=== PATIENT | male | born 1985 | race Caucasian/White ===

== ENCOUNTER 2020-04-30 12:08 | Outpatient (REF) | payer MEDICAID, SELFPAY ==
--- NOTE | 2020-04-30 12:14 | XR_ITS ---
EXAMINATION: XR CLAVICLE, LEFT CLINICAL INFORMATION: Left ankle fracture. COMPARISON: Left clavicle 03/12/2018. TECHNIQUE: 2 of the left clavicle. FINDINGS: Healed overriding midclavicular fracture.. No additional fractures seen. AC joint is intact. The soft tissues are normal. XR/XR clavicle LT IMPRESSION: Healed overriding mid clavicular fracture. Significant callus formation since the previous study 03/12/2018..
== END 2020-04-30 12:09 | disposition home or self-care (01) ==
LOC: HO.XRAY 12:08
PROVIDERS: Visit Provider Internal Medicine
DX: Z87.81 Personal history of (healed) traumatic fracture (principal)
CPT/HCPCS: 73000

== ENCOUNTER 2020-05-05 14:37 | Outpatient (REF) | payer MEDICAID, SELFPAY | END 2020-05-05 14:38 | disposition home or self-care (01) | LOC: HO.LAB 14:37 | PROVIDERS: PCP Internal Medicine; Visit Provider Internal Medicine | DX: Z20.828 Contact with and (suspected) exposure to other viral communicable diseases (principal) | CPT/HCPCS: C9803; U0003 ==

== ENCOUNTER 2020-05-31 14:02 | Outpatient (REF) | payer MEDICAID, SELFPAY ==
--- NOTE | 2020-05-31 14:02 | XR_ITS ---
EXAMINATION: XR CLAVICLE, LEFT CLINICAL INFORMATION: Fracture COMPARISON: Previous x-ray most recent 04/30/2020 TECHNIQUE: 2 of the left clavicle. FINDINGS: There is a healing fracture of the left mid clavicle with bony callus formation. Fracture line appears more indistinct. Alignment is unchanged. Soft tissues are unremarkable. XR/XR clavicle LT IMPRESSION: Healing left mid clavicle fracture.
== END 2020-05-31 14:03 | disposition home or self-care (01) ==
LOC: HO.HOSX 14:02
PROVIDERS: Visit Provider Physician Assistant
DX: S42.009A Fracture of unspecified part of unspecified clavicle, initial encounter for closed fracture (principal); X58.XXXA Exposure to other specified factors, initial encounter; Y93.9 Activity, unspecified; Y92.9 Unspecified place or not applicable; Y99.8 Other external cause status; F17.210 Nicotine dependence, cigarettes, uncomplicated
CPT/HCPCS: 73000; 99202

== ENCOUNTER 2020-06-21 12:10 | Outpatient (REF) | payer MEDICAID, SELFPAY ==
[2020-06-21 14:40] LABS: Alanine Aminotransferase 12 U/L (0-40); Albumin Level 4.5 g/dL (3.5-5.0); Alkaline Phosphatase 45 U/L (39-117); Aspartate Amino Transferase 18 U/L (5-37); Bilirubin Direct 0.2 mg/dL (0.0-0.5); Bilirubin Total 0.5 mg/dL (0.0-1.0); Total Protein 7.3 g/dL (6.5-8.0)
[2020-08-25 11:56] LABS: HCV Log PCR <1.18 NOT DETECTED; HepC Viral Load <15 NOT DETECTED
== END 2020-06-21 12:11 | disposition home or self-care (01) ==
LOC: HO.10HDL 12:10
PROVIDERS: Visit Provider Internal Medicine
DX: B18.2 Chronic viral hepatitis C (principal)
CPT/HCPCS: 36415; 80076; 87522

== ENCOUNTER 2021-05-02 20:51 | Emergency (ER) | payer MEDICAID, SELFPAY ==
[2021-05-02 20:58] VITALS: BP 124/71; PULSE 68; RESP 96; TEMP 36.6; BMI 27.3
== END 2021-05-02 23:04 | disposition left against medical advice (07) ==
PROVIDERS: Emergency Provider Emergency Medicine; PCP Internal Medicine
DX: R20.0 Anesthesia of skin (principal)
CPT/HCPCS: 99281; 99282

== ENCOUNTER 2021-07-18 12:34 | Outpatient (REF) | payer MEDICAID, SELFPAY ==
[2021-07-18 13:10] LABS: MANUAL DIFF FLAG NO
[2021-07-18 13:14] LABS: Basophils Percent Auto 0.3 % (0-2); Eosinophils Absolute Auto 0.2 X10*3/uL (0.0-0.4); Eosinophils Percent Auto 2.7 % (0-4); Hematocrit 44.5 % (42.0-52.0); Hemoglobin 15.5 g/dl (14.0-18.0); Imm Gran Abs Auto 0.02 X10*3/uL (0.00-0.03); Imm Gran Pct Auto 0.3 % (0.0-0.4); Lymphocytes Absolute Auto 2.6 X10*3/uL (1.2-4.9); Lymphocytes Percent Auto 34.3 % (20-40); Mean Corpuscular HGB Conc 34.8 g/dl (31.0-36.0); Mean Corpuscular Hemoglobin 30.2 pg (27.0-33.0); Mean Corpuscular Volume 86.6 fL (80.0-98.0); Mean Platelet Volume 9.5 fL (9.4-12.4); Monocytes Absolute Auto 0.6 X10*3/uL (0.1-1.2); Monocytes Percent Auto 7.3 % (2-11); Neutrophils Absolute Auto 4.2 x10*3/uL (2.0-8.3); Neutrophils Percent Auto 55.1 % (45-73); Platelet Count 209 X10*3/uL (160-400); Red Blood Count 5.14 X10*6/uL (4.60-5.80); White Blood Count 7.5 X10*3/uL (4.8-10.8)
[2021-07-18 13:19] LABS: Prothrombin Time 10.9 SEC (9.9-13.0)
[2021-07-18 13:41] LABS: Alanine Aminotransferase 16 U/L (0-40); Albumin Level 4.7 g/dL (3.5-5.0); Alkaline Phosphatase 39 U/L (39-117); Aspartate Amino Transferase 19 U/L (5-37); Bilirubin Direct 0.2 mg/dL (0.0-0.5); Bilirubin Total 0.4 mg/dL (0.0-1.0); Total Protein 7.8 g/dL (6.5-8.0)
[2021-07-20 13:02] LABS: Alpha Fetoprotein 1.6 ng/mL (<6.1)
[2021-07-23 10:02] LABS: HCV Log PCR <1.18 log IU/mL; HepC Viral Load <15 IU/mL
== END 2021-07-18 12:35 | disposition home or self-care (01) ==
LOC: HO.LAB 12:34
PROVIDERS: PCP Internal Medicine; Visit Provider Internal Medicine
DX: B18.2 Chronic viral hepatitis C (principal)
CPT/HCPCS: 36415; 80076; 82105; 85025; 85610; 87522

== ENCOUNTER 2021-10-13 13:27 | Outpatient (REF) | payer MEDICAID, SELFPAY ==
[2021-10-13 13:42] LABS: MANUAL DIFF FLAG NO
[2021-10-13 14:07] LABS: Basophils Percent Auto 0.4 % (0-2); Eosinophils Absolute Auto 0.2 X10*3/uL (0.0-0.4); Eosinophils Percent Auto 2.3 % (0-4); Hematocrit 43.6 % (42.0-52.0); Hemoglobin 14.9 g/dl (14.0-18.0); Imm Gran Abs Auto 0.02 X10*3/uL (0.00-0.03); Imm Gran Pct Auto 0.3 % (0.0-0.4); Lymphocytes Absolute Auto 2.8 X10*3/uL (1.2-4.9); Mean Corpuscular HGB Conc 34.2 g/dl (31.0-36.0); Mean Corpuscular Hemoglobin 29.3 pg (27.0-33.0); Mean Corpuscular Volume 85.7 fL (80.0-98.0); Mean Platelet Volume 9.6 fL (9.4-12.4); Monocytes Absolute Auto 0.6 X10*3/uL (0.1-1.2); Monocytes Percent Auto 7.4 % (2-11); Neutrophils Percent Auto 52.6 % (45-73); Platelet Count 261 X10*3/uL (160-400); Red Blood Count 5.09 X10*6/uL (4.60-5.80); Red Cell Distribution Width 13.1 % (11.0-16.0); White Blood Count 7.5 X10*3/uL (4.8-10.8)
[2021-10-13 14:28] LABS: Alanine Aminotransferase 11 U/L (0-40); Albumin Level 4.6 g/dL (3.5-5.0); Alkaline Phosphatase 39 U/L (39-117); Anion Gap 11 (12-20); Aspartate Amino Transferase 17 U/L (5-37); Bilirubin Total 0.5 mg/dL (0.0-1.0); Blood Urea Nitrogen 9 mg/dL (9-16); Calcium 9.9 mg/dL (8.4-10.2); Carbon Dioxide 27 mmol/L (22-29); Chloride 105 mmol/L (96-108); Estimated Glomerular Filt Rate > 60; Glucose Random 91 mg/dL (60-115); Potassium 4.3 mmol/L (3.3-5.1); Sodium 139 mmol/L (135-145); Total Protein 7.7 g/dL (6.5-8.0)
[2021-10-15 16:06] LABS: HCV Log PCR <1.18 NOT DETECTED Log IU/mL (NOT DETECTED); HepC Viral Load <15 NOT DETECTED IU/mL (NOT DETECTED)
== END 2021-10-13 13:28 | disposition home or self-care (01) ==
LOC: HO.LAB 13:27
PROVIDERS: PCP Internal Medicine; Visit Provider Internal Medicine
DX: Z86.19 Personal history of other infectious and parasitic diseases (principal); Z83.3 Family history of diabetes mellitus
CPT/HCPCS: 36415; 80053; 85025; 87522

== ENCOUNTER 2022-04-19 11:38 | Outpatient (REF) | payer MEDICAID, SELFPAY ==
[2022-04-19 14:19] LABS: Appearance Urine Clear; Color Urine Yellow; Glucose Urine UA Negative (Negative); Leukocyte Esterase Urine Negative (Negative); Nitrite Urine Negative (Negative); Urine Blood Negative (Negative); Urine Ketones Negative (Negative); Urine Protein Negative (Neg-Trace)
[2022-04-19 16:43] LABS: CT PCR NOT DETECTED (Not Detect.); NG PCR NOT DETECTED (Not Detect.)
== END 2022-04-19 11:39 | disposition home or self-care (01) ==
LOC: HO.10HDL 11:38
PROVIDERS: Visit Provider Internal Medicine
DX: R30.0 Dysuria (principal)
CPT/HCPCS: 81003; 87086; 87491; 87591

== ENCOUNTER 2022-09-29 12:01 | Outpatient (REF) | payer MEDICAID, SELFPAY ==
[2022-09-29 13:13] LABS: MANUAL DIFF FLAG NO
[2022-09-29 13:21] LABS: Basophils Percent Auto 0.4 % (0-2); Eosinophils Absolute Auto 0.1 X10*3/uL (0.0-0.4); Eosinophils Percent Auto 1.9 % (0-4); Hematocrit 43.7 % (42.0-52.0); Hemoglobin 15.2 g/dl (14.0-18.0); Imm Gran Abs Auto 0.01 X10*3/uL (0.00-0.03); Imm Gran Pct Auto 0.2 % (0.0-0.4); Lymphocytes Absolute Auto 1.7 X10*3/uL (1.2-4.9); Lymphocytes Percent Auto 31.7 % (20-40); Mean Corpuscular HGB Conc 34.8 g/dl (31.0-36.0); Mean Corpuscular Hemoglobin 29.5 pg (27.0-33.0); Mean Corpuscular Volume 84.9 fL (80.0-98.0); Mean Platelet Volume 10.4 fL (9.4-12.4); Monocytes Absolute Auto 0.4 X10*3/uL (0.1-1.2); Monocytes Percent Auto 7.1 % (2-11); Neutrophils Absolute Auto 3.1 x10*3/uL (2.0-8.3); Neutrophils Percent Auto 58.7 % (45-73); Platelet Count 230 X10*3/uL (160-400); Red Blood Count 5.15 X10*6/uL (4.60-5.80); Red Cell Distribution Width 12.7 % (11.0-16.0); White Blood Count 5.2 X10*3/uL (4.8-10.8)
[2022-09-29 13:23] LABS: Appearance Urine Clear; Color Urine Yellow; Glucose Urine UA Negative (Negative); Leukocyte Esterase Urine Negative (Negative); Nitrite Urine Negative (Negative); PH 5.5 (5.0-9.0); Urine Blood Negative (Negative); Urine Ketones Negative (Negative); Urine Protein Negative (Neg-Trace)
[2022-09-29 13:34] LABS: Alanine Aminotransferase 9 U/L (0-40); Albumin Level 4.6 g/dL (3.5-5.0); Alkaline Phosphatase 32 U/L (39-117); Anion Gap 10 (12-20); Aspartate Amino Transferase 13 U/L (5-37); Bilirubin Total 0.9 mg/dL (0.0-1.0); Blood Urea Nitrogen 13 mg/dL (9-16); C Reactive Protein < 0.10 mg/dL (< or = 0.50); Calcium 9.3 mg/dL (8.4-10.2); Carbon Dioxide 25 mmol/L (22-29); Chloride 108 mmol/L (96-108); Estimated Glomerular Filt Rate > 60; Glucose Random 89 mg/dL (60-115); Lipase 38 U/L (8-78); Potassium 4.1 mmol/L (3.3-5.1); Sodium 139 mmol/L (135-145); Total Protein 7.1 g/dL (6.5-8.0)
== END 2022-09-29 12:02 | disposition home or self-care (01) ==
LOC: HO.10HDL 12:01
PROVIDERS: Visit Provider Internal Medicine
DX: R10.9 Unspecified abdominal pain (principal); R63.4 Abnormal weight loss; Z83.3 Family history of diabetes mellitus
CPT/HCPCS: 36415; 80053; 81003; 83690; 85025; 86140

== ENCOUNTER 2022-11-07 23:47 | Emergency (ER) | payer MEDICAID, SELFPAY ==
[2022-11-08 00:01] VITALS: BP 115/78; PULSE 67; RESP 16; TEMP 36.6; O2SAT 97; BMI 27.4
[2022-11-08 00:14] LABS: Hematocrit 41.6 % (42.0-52.0); Hemoglobin 14.9 g/dl (14.0-18.0); Mean Corpuscular HGB Conc 35.8 g/dl (31.0-36.0); Mean Corpuscular Hemoglobin 30.1 pg (27.0-33.0); Mean Platelet Volume 9.5 fL (9.4-12.4); Platelet Count 225 X10*3/uL (160-400); Red Blood Count 4.95 X10*6/uL (4.60-5.80); Red Cell Distribution Width 12.5 % (11.0-16.0); White Blood Count 7.8 X10*3/uL (4.8-10.8)
[2022-11-08 00:40] LABS: Alanine Aminotransferase 9 U/L (0-40); Albumin Level 4.5 g/dL (3.5-5.0); Alkaline Phosphatase 30 U/L (39-117); Anion Gap 12 (12-20); Aspartate Amino Transferase 13 U/L (5-37); Bilirubin Total 0.7 mg/dL (0.0-1.0); Blood Urea Nitrogen 15 mg/dL (9-16); Calcium 9.6 mg/dL (8.4-10.2); Carbon Dioxide 25 mmol/L (22-29); Chloride 108 mmol/L (96-108); Estimated Glomerular Filt Rate > 60; Glucose Random 123 mg/dL (60-115); Potassium 3.7 mmol/L (3.3-5.1); Sodium 141 mmol/L (135-145); Total Protein 6.9 g/dL (6.5-8.0)
== END 2022-11-08 00:51 | disposition left against medical advice (07) ==
PROVIDERS: Emergency Provider Emergency Medicine; PCP Internal Medicine
DX: R20.0 Anesthesia of skin (principal); Z79.899 Other long term (current) drug therapy
CPT/HCPCS: 36415; 80053; 83735; 85027; 99281; 99283

== ENCOUNTER 2022-12-21 10:05 | Outpatient (REF) | payer MEDICAID, SELFPAY ==
[2022-12-22 17:43] LABS: HCV Log PCR <1.18 NOT DETECTED Log IU/mL (NOT DETECTED); HepC Viral Load <15 NOT DETECTED IU/mL (NOT DETECTED)
[2022-12-25 13:08] LABS: Alpha Fetoprotein 1.5 ng/mL (<6.1)
[2022-12-28 14:44] LABS: FIB-ALT 7 U/L (9-46); FIB-Alpha-2-Macroglobulin 112 mg/dL (106-279); FIB-Apolipoprotein A1 130 mg/dL (94-176); FIB-GGT 9 U/L (3-90); FIB-Haptoglobin 98 mg/dL (43-212); FIB-Total Bilirubin 0.4 mg/dL (0.2-1.2); Liver Fibrosis Score 0.04; Liver Fibrosis Stage F0; Nec Inflam Act Grade A0; Nec Inflam Act Score 0.01
== END 2022-12-21 10:06 | disposition home or self-care (01) ==
LOC: HO.10HDL 10:05
PROVIDERS: Visit Provider Internal Medicine
DX: B18.2 Chronic viral hepatitis C (principal)
CPT/HCPCS: 36415; 81596; 82105; 87522

== ENCOUNTER 2023-01-05 08:46 | Outpatient (REF) | payer MEDICAID, SELFPAY ==
--- NOTE | ~2023-01-05 | US_ITS ---
EXAMINATION: US COMPLETE ABDOMEN WITH LIVER ELASTOGRAPHY CLINICAL INFORMATION: Chronic hepatitis C. COMPARISON: None available. TECHNIQUE: Real-time imaging of the abdominal viscera. Noninvasive ultrasound liver fibrosis assessment is performed using Kareen ElastPQ point quantification shear wave elastography (2D-SWE) with a C5-2 MHz transducer. Multiple elastography samples are obtained. FINDINGS: PANCREAS: Limited. The visualized pancreatic head and proximal body are normal in appearance. The remainder of the pancreas is obscured from visualization by the overlying bowel gas. ABDOMINAL AORTA: The proximal segment is normal in caliber. The mid and distal segments are poorly evaluated due to overlapping bowel gas. INFERIOR VENA CAVA: Visualized portions are normal. LIVER: The liver demonstrates normal size, contour and generally increased echogenicity. No focal lesion or intrahepatic biliary duct dilatation. The right lobe measures 16.0 cm in length. The left lobe measures 9.7 cm in length. Portal flow is towards the liver (hepatopetal). Shear wave liver elastography median stiffness is 1.89 m/s (reference: normal median stiffness is 1.3 m/s or less). IQR/median stiffness to assess sampling precision is 0.04 (reference: good quality data set is IQR/median stiffness of 0.15 or less). GALLBLADDER: The gallbladder is physiologically distended. There is cholelithiasis, without sludge, polyps, wall thickening or pericholecystic fluid. COMMON BILE DUCT: Normal in caliber measuring 0.3 cm in diameter. RIGHT KIDNEY: There is pelviectasis, without janine hydronephrosis. No renal calculi or focal parenchymal lesions. The kidney measures 10.6 cm in maximum dimension. LEFT KIDNEY: Normal. No hydronephrosis. No renal calculi or focal parenchymal lesions. The kidney measures 9.8 cm in maximum dimension. SPLEEN: Normal. The spleen measures 10.7 cm in maximum dimension. FREE FLUID: No ascites. There is a left pleural effusion. US/US abdomen comp w elastography IMPRESSION: 1. There is generalized increase in hepatic echotexture, consistent with fatty infiltration or hepatocellular disease. Please correlate clinically. No focal hepatic mass or intrahepatic biliary dilatation is seen. 2. Liver elastography: Measurements are suggestive of compensated advanced chronic liver disease but need further test for confirmation. 3. There is cholelithiasis. 4. There is a left pleural effusion. REFERENCE: Society of Radiologists in Ultrasound Liver Stiffness Thresholds (2020): LIVER STIFFNESS THRESHOLDS: *Liver Stiffness equal or less than 1.3 m/s: High probability of being normal. *Liver Stiffness less than 1.7 m/s: In the absence of other known clinical signs, rules out compensated advanced chronic liver disease. *Liver Stiffness 1.7-2.1 m/s: Suggestive of compensated advanced chronic liver disease but need further test for confirmation. *Liver Stiffness over 2.1 m/s: Rules in compensated advanced chronic liver disease. *Liver Stiffness over 2.4 m/s: Suggestive of clinically significant portal hypertension. QUALITY OF DATA SET: *IQR/Median value equal or less than 0.15 implies a quality data set. *IQR/Median value over 0.15 implies a poor quality data set. SIGNIFICANT CHANGE FROM PRIOR EXAM: Significant change if liver stiffness measurement is 10% or greater from prior exam. OTHER CONSIDERATIONS: The stage of liver fibrosis may be overestimated in the setting of acute hepatitis, liver inflammation, elevated liver function tests, hepatic vascular congestion, obstructive cholestasis, non-fasting state, and infiltrative diseases such as amyloidosis and lymphoma. In some patients with NAFLD, the liver stiffness thresholds for compensated advanced chronic liver disease may be lower. In causes other than viral hepatitis and NAFLD, liver stiffness thresholds are not well established.
== END 2023-01-05 08:47 | disposition home or self-care (01) ==
LOC: HO.US 08:46
PROVIDERS: PCP Internal Medicine; Visit Provider Internal Medicine
DX: B18.2 Chronic viral hepatitis C (principal)
CPT/HCPCS: 76705; 76981

== ENCOUNTER 2023-02-09 12:33 | Emergency (ER) | payer MEDICAID, SELFPAY ==
[2023-02-09 12:38] VITALS: BP 138/71; PULSE 60; RESP 18; TEMP 36.6; O2SAT 98; BMI 26.6
--- NOTE | 2023-02-09 12:40 | ED_ITS ---
HPI - General Adult General Chief complaint: General Medical Stated complaint: exposed to HIV Time Seen by Provider: 02/09/23 13:35 Source: patient Mode of arrival: ambulatory Limitations: no limitations History of Present Illness HPI narrative: Patient is a 37 year old assigned male at with no reported medical history presenting to the emergency department today with concern of exposure to HIV. Patient states that he had sex, protected, but the protection broke and now he is concerned he was exposed to HIV and wants treatment. Patient denies any dizziness, lightheadedness, abdominal pain, nausea, vomiting, fever, chills, blurry vision, double vision, loss of vision, chest pain, difficulty breathing, shortness of breath, back pain, night sweats, pain with urination, increased urinary frequency, increased urinary urgency, blood in his urine or stool, syncope or a near syncopal episode, recent trauma or falls, bowel incontinence, bladder incontinence, bowel retention, bladder retention, or any other complaints at this time. Onset (ago): hour(s) Relieving factors: none Exacerbating factors: none Associated symptoms: denies other symptoms Treatments prior to arrival: none Related Data Home Medications Medication Instructions Recorded Confirmed No Known Home Meds 05/31/20 05/31/20 Allergies Allergy/AdvReac Type Severity Reaction Status Date / Time No Known Allergies Allergy Verified 02/09/23 12:38 Review of Systems Constitutional: Constitutional: Reports no additional constitutional complaints, Denies chills, Denies fever(s) and Denies night sweats Eyes: Eyes: Reports no additional eye complaints, Denies blurry vision, Denies change in vision, Denies diplopia, Denies eye discharge, Denies loss of vision and Denies eye pain ENT: Denies dizziness Cardiovascular: Cardiovascular: Reports no additional cardiovascular complaints, Denies chest pain, Denies lightheadedness, Denies Loss of Consciousness and Denies dyspnea Respiratory: Respiratory: Reports no additional respiratory complaints and Denies dyspnea Gastrointestinal: Gastrointestinal: Reports no additional gastrointestinal complaints, Denies abdominal pain, Denies melena, Denies hematochezia, Denies change in bowel habits and Denies change in stool character Genitourinary: Genitourinary: Reports no additional male genitourinary complaints, Denies hematuria, Denies oliguria, Denies difficulty urinating, Denies dysuria, Denies urinary frequency, Denies urinary hesitancy, Denies urinary incontinence and Denies urinary urgency Musculoskeletal: Musculoskeletal: Reports no additional musculoskeletal complaints, Denies numbness and Denies tingling Neurologic: Denies dizziness, Denies loss of vision, Denies numbness and Denies tingling Psychiatric: Psychiatric: Reports no additional psychiatric complaints Endocrine: Endocrine: Reports no additional endocrine complaints Hematologic/Lymphatic: Hematologic/Lymphatic: Reports no additional hematologic/lymphatic complaints Allergic/Immunologic: Allergic/Immunologic: Reports no additional allergic/immunologic complaints [facility] Past Medical History Attestation statement: The following information was validated with the patient. 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 Physical Exam ED Vital Signs: Vital Signs - 24 hr 02/09/23 12:38 Temperature 98 F Pulse Rate 60 Respiratory Rate 18 Blood Pressure 138/71 Pulse Oximetry 98 Oxygen Delivery Method Room Air BMI result Body Mass Index 26.6 Const General: cooperative, no acute distress, alert and awake Nutritional Appearance: well nourished Orientation/consciousness: patient oriented x3 Limitations: no limitations HENMT Head: Yes normal to inspection and Yes atraumatic Ears: hearing grossly normal bilaterally and external ears normal General nose exam: Normal external nose present, no nasal discharge noted and no epistaxis Face and sinus: Yes normal facial exam, No abrasion and No laceration Mouth: Normal oral and palatal mucosa present, no drooling and no muffled voice Eyes General: appearance normal, both eyes and all related structures Periorbital: periorbital findings normal Eyelids: Yes eyelids normal Conjunctivae: conjunctivae normal Pupils: Equal, round and reactive pupils present EOM: EOMs intact bilaterally Neck Neck: Yes normal visual inspection, Yes full ROM and Yes no lymphadenopathy Chest Chest palpation & inspection: normal inspection of the chest Resp Effort & Inspection: normal respiratory effort and able to speak in complete sentences GI Inspection: Yes normal to inspection Neuro General: patient oriented x3 and moves all extremities Cranial nerves: Yes Equal, round and reactive pupils present Cognition (Neuro): normal cognition Motor exam (neuro): 5/5 motor strength present throughout Sensory Exam: Normal double simultaneous stimulation for sensation Coordination: [id number] test normal Extrem General: Yes normal to inspection, Yes full ROM and Yes capillary refill normal Psych Appearance: grossly normal Mental Status: mental status grossly normal Affect: normal affect Attitude: cooperative Thought process: Normal thought process present Thought content: Normal thought content present Insight: Good insight present (Psych) Course Course Course Narrative: RME performed by Regian North PA-C. Patient is a 37 year old assigned male at presenting to the emergency department with concern for HIV exposure after a sexual encounter. Labs ordered. Patient placed back in the waiting room pending room availability and results. Medical Decision Making Medical Decision Making MDM Narrative: Patient is a 37 year old assigned male at with no reported medical history presenting to the emergency department today with concern of HIV exposure. Patient's limited physical exam performed in triage was unremarkable. Patient eloped from the department prior to having any testing done. Patient eloped from the department prior to myself or any of the other emergency department providers explaining his physical exam findings. Differential Diagnosis Differential Diagnoses: The differential diagnosis associated with the presentation includes HIV exposure Discharge Plan Discharge Clinical Impression: Sexual behavior with high risk of exposure to communicable disease Patient Disposition: Elopement Discharge Date/Time: 02/09/23 13:45
== END 2023-02-09 13:45 | disposition left against medical advice (07) ==
PROVIDERS: Emergency Provider Emergency Medicine; PCP Internal Medicine
DX: Z20.6 Contact with and (suspected) exposure to human immunodeficiency virus [HIV] (principal)
CPT/HCPCS: 99281

== ENCOUNTER 2023-02-10 01:09 | Emergency (ER) | payer MEDICAID, SELFPAY ==
[2023-02-10 01:22] VITALS: BP 108/68; PULSE 70; RESP 16; TEMP 37.1; O2SAT 98; BMI 27.1
[2023-02-10 01:53] LABS: Appearance Urine Clear; Color Urine Yellow; Glucose Urine UA Negative (Negative); Leukocyte Esterase Urine Negative (Negative); Nitrite Urine Negative (Negative); PH 5.5 (5.0-9.0); Specific Gravity - Urine >= 1.030 (1.005-1.025); Urine Blood Negative (Negative); Urine Ketones Trace mg/dL (Negative); Urine Protein Negative (Neg-Trace)
[2023-02-10 01:56] LABS: Bacteria Urine None Seen (None Seen); Hyaline Casts Urine 0-2 /LPF (0-2); RBC Urine 0-2 /HPF (0-2); Squamous Epithelial Cell Urine 0-2 /HPF (0-2); WBC Urine 0-5 /HPF (0-5)
[2023-02-10 02:30] VITALS: BP 126/68; PULSE 63; RESP 18; TEMP 36.6; O2SAT 98
--- NOTE | 2023-02-10 02:30 | ED_ITS ---
HPI - Male Genitourinary General Chief complaint: Urogenital-Male Stated complaint: Medical? Time Seen by Provider: 02/10/23 02:30 Source: patient Mode of arrival: ambulatory Limitations: no limitations History of Present Illness HPI Narrative: Patient had anal intercourse with another brendan, condom ruptured patient does not know detail history of his partner medical history worried about STDs wanted medication prophylactically against HIV no history of STD no history of penile discharge Related Data Previous Rx's Medication Instructions Recorded emtricitabine 200 mg-tenofovir 1 tab PO QAM #30 tabs 02/10/23 disoproxil fumarate 300 mg tablet (Truvada) raltegravir 400 mg tablet 400 mg PO BID #60 tabs 02/10/23 (Isentress) Allergies Allergy/AdvReac Type Severity Reaction Status Date / Time No Known Allergies Allergy Verified 02/09/23 12:38 Review of Systems Review of Systems: Yes all other systems are reviewed and are negative [facility] Social History Social History Alcohol intake: never Smoked in Last 30 Days: No Substance Use Type: Marijuana Substance Use Frequency: Occasionally Last Used Substance: Hours (ago) Any prior treatment program specific to substance use: No Advance Directives: No Advance Directives Information Provided: No 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 Oriented X3. No acute distress. Neck: Normal inspection. Neck supple. CVS: Normal heart rate and rhythm. Pulses normal. Respiratory: No respiratory distress. Equal air entry bilateral, no wheezing/rales/rhonchi Abdomen: Soft and nontender. Bowel sounds are present, no mass palpable, no CVA tenderness Skin: Skin warm and dry. Normal skin color. Normal skin turgor. Extremities: No lower extremity edema. No calf tenderness Neuro: Oriented X 3. No motor deficit. Medications Administered Discontinued Medications Generic Name Dose Route Start Last Admin Trade Name Luci PRN Reason Stop Dose Admin Raltegravir/Emtricitabine/Tenofovir 1 kit 02/10/23 02:56 02/10/23 04:00 Post Exposure Medication Kit PO 02/10/23 02:57 1 kit ONCE ONE Administration Medical Decision Making Medical Decision Making MDM Narrative: Patient started on prophylactic treatment for HIV , GC and Trichomonas is negative hepatitis C also negative patient to follow-up with his PCP Lab Data MDM Lab Attestation statement: I reviewed the patient's lab results. 02/10/23 03:04 02/10/23 03:04 Labs: Lab Results 02/10/23 02/10/23 02/10/23 Range/Units 01:47 01:47 03:04 WBC (4.8-10.8) X10*3/uL RBC (4.60-5.80) X10*6/uL Hgb (14.0-18.0) g/dl Hct (42.0-52.0) % MCV (80.0-98.0) fL MCH (27.0-33.0) pg MCHC (31.0-36.0) g/dl RDW (11.0-16.0) % Plt Count (160-400) X10*3/uL MPV (9.4-12.4) fL Immature Gran % (Auto) (0.0-0.4) % Neut % (Auto) (45-73) % Lymph % (Auto) (20-40) % [place] % (Auto) (2-11) % Eos % (Auto) (0-4) % Baso % (Auto) (0-2) % Lymph # (Auto) (1.2-4.9) X10*3/uL [place] # (Auto) (0.1-1.2) X10*3/uL Eos # (Auto) (0.0-0.4) X10*3/uL Baso # (Auto) (0.0-0.2) X10*3/uL Abs Immat Gran (auto) (0.00-0.03) X10*3/uL Absolute Neuts (auto) (2.0-8.3) x10*3/uL Absolute Nucleated RBC (0.0-0.012) X10*3/uL Nucleated RBC % (auto) (0.0-0.2) /100WBC Sodium (135-145) mmol/L Potassium (3.3-5.1) mmol/L Chloride (96-108) mmol/L Carbon Dioxide (22-29) mmol/L Anion Gap (12-20) BUN (9-16) mg/dL Creatinine (0.5-1.4) mg/dL Estim Creat Clear Calc Estimated GFR Random Glucose (60-115) mg/dL Calcium (8.4-10.2) mg/dL Total Bilirubin (0.0-1.0) mg/dL AST (5-37) U/L ALT (0-40) U/L Alkaline Phosphatase (39-117) U/L Total Protein (6.5-8.0) g/dL Albumin (3.5-5.0) g/dL Urine Color Yellow Urine Appearance Clear Urine pH 5.5 (5.0-9.0) Ur Specific [place] >= 1.030 H (1.005-1.025) Urine Protein Negative (Neg-Trace) mg/dL Urine Glucose (UA) Negative (Negative) mg/dL Urine Ketones Trace (Negative) mg/dL Urine Blood Negative (Negative) Urine Nitrite Negative (Negative) Ur Leukocyte Esterase Negative (Negative) Urine RBC 0-2 (0-2) /HPF Urine WBC 0-5 (0-5) /HPF Ur Squamous Epith Cells 0-2 (0-2) /HPF Urine Bacteria None Seen (None Seen) Hyaline Casts 0-2 (0-2) /LPF Chlam trachomat DNA PCR NOT DETECTED (Not Detect.) Hep Bs Antigen (Negative) Hep Bs Antibody (Nonreactive) Hep B Core Total Ab (Nonreactive) Hepatitis C Antibody (Nonreactive) HIV 1&2 Ab/P24 Ag 4thGn Nonreactive (Nonreactive) N.gonorrhoeae DNA (PCR) NOT DETECTED (Not Detect.) 02/10/23 02/10/23 02/10/23 Range/Units 03:04 03:04 03:04 WBC 7.4 (4.8-10.8) X10*3/uL RBC 5.16 (4.60-5.80) X10*6/uL Hgb 15.5 (14.0-18.0) g/dl Hct 45.0 (42.0-52.0) % MCV 87.2 (80.0-98.0) fL MCH 30.0 (27.0-33.0) pg MCHC 34.4 (31.0-36.0) g/dl RDW 13.1 (11.0-16.0) % Plt Count 238 (160-400) X10*3/uL MPV 9.3 L (9.4-12.4) fL Immature Gran % (Auto) 0.3 (0.0-0.4) % Neut % (Auto) 50.9 (45-73) % Lymph % (Auto) 37.1 (20-40) % Rosebud % (Auto) 8.3 (2-11) % Eos % (Auto) 3.1 (0-4) % Baso % (Auto) 0.3 (0-2) % Lymph # (Auto) 2.7 (1.2-4.9) X10*3/uL [place] # (Auto) 0.6 (0.1-1.2) X10*3/uL Eos # (Auto) 0.2 (0.0-0.4) X10*3/uL Baso # (Auto) 0.0 (0.0-0.2) X10*3/uL Abs Immat Gran (auto) 0.02 (0.00-0.03) X10*3/uL Absolute Neuts (auto) 3.8 (2.0-8.3) x10*3/uL Absolute Nucleated RBC 0.000 (0.0-0.012) X10*3/uL Nucleated RBC % (auto) 0.0 (0.0-0.2) /100WBC Sodium 143 (135-145) mmol/L Potassium 4.7 D (3.3-5.1) mmol/L Chloride 108 (96-108) mmol/L Carbon Dioxide 26 (22-29) mmol/L Anion Gap 14 (12-20) BUN 11 (9-16) mg/dL Creatinine 1.02 (0.5-1.4) mg/dL Estim Creat Clear Calc 92.7 Estimated GFR > 60 Random Glucose 93 (60-115) mg/dL Calcium 10.1 (8.4-10.2) mg/dL Total Bilirubin 0.5 (0.0-1.0) mg/dL AST 27 (5-37) U/L ALT 15 (0-40) U/L Alkaline Phosphatase 32 L (39-117) U/L Total Protein 7.8 (6.5-8.0) g/dL Albumin 4.7 (3.5-5.0) g/dL Urine Color Urine Appearance Urine pH (5.0-9.0) Ur Specific [place] (1.005-1.025) Urine Protein (Neg-Trace) mg/dL Urine Glucose (UA) (Negative) mg/dL Urine Ketones (Negative) mg/dL Urine Blood (Negative) Urine Nitrite (Negative) Ur Leukocyte Esterase (Negative) Urine RBC (0-2) /HPF Urine WBC (0-5) /HPF Ur Squamous Epith Cells (0-2) /HPF Urine Bacteria (None Seen) Hyaline Casts (0-2) /LPF Chlam trachomat DNA PCR (Not Detect.) Hep Bs Antigen Negative (Negative) Hep Bs Antibody NONREACTIVE (Nonreactive) Hep B Core Total Ab Nonreactive (Nonreactive) Hepatitis C Antibody Reactive (Nonreactive) HIV 1&2 Ab/P24 Ag 4thGn (Nonreactive) N.gonorrhoeae DNA (PCR) (Not Detect.) Discharge Plan Discharge Clinical Impression: Potential exposure to STD Patient Disposition: Home, Self-Care Instructions: Sexually Transmitted Diseases (ED), Postexposure Prophylaxis (ED) Additional Instructions: Safe sex advised Take medication for possible exposure to HIV and follow with PCP in 3 days Prescriptions: New emtricitabine-tenofovir (TDF) [Truvada] 200-300 mg tablet 1 tab PO QAM Qty: 30 0RF Isentress 400 mg tablet 400 mg PO BID Qty: 60 0RF Interventions: ED Discharge Assessment Last Done: 02/10/23 05:18 Discharge Date/Time: 02/10/23 05:19
[2023-02-10 03:09] LABS: MANUAL DIFF FLAG NO
[2023-02-10 03:10] LABS: Basophils Percent Auto 0.3 % (0-2); Eosinophils Absolute Auto 0.2 X10*3/uL (0.0-0.4); Eosinophils Percent Auto 3.1 % (0-4); Hemoglobin 15.5 g/dl (14.0-18.0); Imm Gran Abs Auto 0.02 X10*3/uL (0.00-0.03); Imm Gran Pct Auto 0.3 % (0.0-0.4); Lymphocytes Absolute Auto 2.7 X10*3/uL (1.2-4.9); Lymphocytes Percent Auto 37.1 % (20-40); Mean Corpuscular HGB Conc 34.4 g/dl (31.0-36.0); Mean Corpuscular Volume 87.2 fL (80.0-98.0); Mean Platelet Volume 9.3 fL (9.4-12.4); Monocytes Absolute Auto 0.6 X10*3/uL (0.1-1.2); Monocytes Percent Auto 8.3 % (2-11); Neutrophils Absolute Auto 3.8 x10*3/uL (2.0-8.3); Neutrophils Percent Auto 50.9 % (45-73); Platelet Count 238 X10*3/uL (160-400); Red Blood Count 5.16 X10*6/uL (4.60-5.80); Red Cell Distribution Width 13.1 % (11.0-16.0); White Blood Count 7.4 X10*3/uL (4.8-10.8)
[2023-02-10 03:25] LABS: Alanine Aminotransferase 15 U/L (0-40); Albumin Level 4.7 g/dL (3.5-5.0); Alkaline Phosphatase 32 U/L (39-117); Anion Gap 14 (12-20); Aspartate Amino Transferase 27 U/L (5-37); Bilirubin Total 0.5 mg/dL (0.0-1.0); Blood Urea Nitrogen 11 mg/dL (9-16); Calcium 10.1 mg/dL (8.4-10.2); Carbon Dioxide 26 mmol/L (22-29); Chloride 108 mmol/L (96-108); Creatinine Clr Calc Pharmacy 92.7; Estimated Glomerular Filt Rate > 60; Glucose Random 93 mg/dL (60-115); Potassium 4.7 mmol/L (3.3-5.1); Sodium 143 mmol/L (135-145); Total Protein 7.8 g/dL (6.5-8.0)
[2023-02-10 03:41] LABS: CT PCR NOT DETECTED (Not Detect.); NG PCR NOT DETECTED (Not Detect.)
[2023-02-10 03:52] LABS: HIV AB/AG Nonreactive (Nonreactive); HIV Num 1 0.06 S/CO (0.00-0.99)
[2023-02-10 03:53] LABS: HBS Num1 4.68 mIU/mL (0-7.99); HBc Num1 0.07 S/CO (0.00-0.79); HBsAGNum1 0.52 S/CO (0.00-0.99); Hepatitis B Core Antibody Nonreactive (Nonreactive); Hepatitis B Surface Antigen Negative (Negative); ~HepC Num1 13.83 S/CO (0.00-0.79); ~Hepatitis B Surface Antibody NONREACTIVE (Nonreactive)
[2023-02-10 03:59] VITALS: BP 112/69; PULSE 63; RESP 16; TEMP 36.7; O2SAT 98
[2023-02-10] MEDS: Post Exposure Medication Kit 1 KIT PO (04:00)
[2023-02-10 04:10] LABS: Hepatitis C Ab Exposure Source Reactive (Nonreactive)
== END 2023-02-10 05:19 | disposition home or self-care (01) ==
PROVIDERS: Physician Assistant; Emergency Provider Internal Medicine; PCP Internal Medicine
DX: Z20.2 Contact with and (suspected) exposure to infections with a predominantly sexual mode of transmission (principal)
CPT/HCPCS: 0353U; 36415; 80053; 81001; 85025; 86803; 99284

== ENCOUNTER 2023-03-23 16:45 | Outpatient (REF) | payer MEDICAID, SELFPAY ==
--- NOTE | ~2023-03-23 | XR_ITS ---
EXAMINATION: XR CHEST CLINICAL INFORMATION: Weight loss COMPARISON: Previous chest x-ray February 2018 TECHNIQUE: 2 views of the chest were obtained. FINDINGS: No significant abnormality is noted involving the heart, lungs, mediastinum, bony thorax or soft tissues. XR/XR chest 2V IMPRESSION: Unremarkable examination.
[2023-03-23 17:01] LABS: MANUAL DIFF FLAG NO
[2023-03-23 17:10] LABS: Basophils Percent Auto 0.3 % (0-2); Eosinophils Absolute Auto 0.2 X10*3/uL (0.0-0.4); Hematocrit 47.4 % (42.0-52.0); Hemoglobin 16.7 g/dl (14.0-18.0); Imm Gran Abs Auto 0.03 X10*3/uL (0.00-0.03); Imm Gran Pct Auto 0.4 % (0.0-0.4); Lymphocytes Absolute Auto 1.9 X10*3/uL (1.2-4.9); Lymphocytes Percent Auto 25.4 % (20-40); Mean Corpuscular HGB Conc 35.2 g/dl (31.0-36.0); Mean Corpuscular Hemoglobin 30.6 pg (27.0-33.0); Mean Corpuscular Volume 86.8 fL (80.0-98.0); Mean Platelet Volume 9.5 fL (9.4-12.4); Monocytes Absolute Auto 0.7 X10*3/uL (0.1-1.2); Monocytes Percent Auto 8.6 % (2-11); Neutrophils Absolute Auto 4.8 x10*3/uL (2.0-8.3); Neutrophils Percent Auto 63.3 % (45-73); Platelet Count 224 X10*3/uL (160-400); Red Blood Count 5.46 X10*6/uL (4.60-5.80); Red Cell Distribution Width 12.8 % (11.0-16.0); White Blood Count 7.6 X10*3/uL (4.8-10.8)
[2023-03-23 19:22] LABS: Alanine Aminotransferase 13 U/L (0-40); Albumin Level 4.9 g/dL (3.5-5.0); Alkaline Phosphatase 35 U/L (39-117); Anion Gap 18 (12-20); Aspartate Amino Transferase 15 U/L (5-37); Blood Urea Nitrogen 12 mg/dL (9-16); Calcium 9.7 mg/dL (8.4-10.2); Carbon Dioxide 24 mmol/L (22-29); Chloride 104 mmol/L (96-108); Estimated Glomerular Filt Rate > 60; Glucose Random 75 mg/dL (60-115); Potassium 3.6 mmol/L (3.3-5.1); Sodium 142 mmol/L (135-145); Total Protein 8.1 g/dL (6.5-8.0)
[2023-03-23 19:37] LABS: Free T4 (Free Thyroxine) 1.11 ng/dL (0.71-1.85)
[2023-03-23 19:52] LABS: Folate 9.6 ng/mL (> or = 4.0); Vitamin B12 307 pg/mL (200-900)
[2023-03-24 03:30] LABS: Syphilis Screen Nonreactive (Nonreactive)
[2023-03-24 03:35] LABS: HBS Num1 4.26 mIU/mL (0-7.99); HIV AB/AG Nonreactive (Nonreactive); HIV Num 1 0.05 S/CO (0.00-0.99); ~HepC Num1 14.81 S/CO (0.00-0.79); ~Hepatitis B Surface Antibody NONREACTIVE (Nonreactive); ~Hepatitis C Antibody Reactive (Nonreactive)
== END 2023-03-23 16:46 | disposition home or self-care (01) ==
LOC: HO.LAB 16:45
PROVIDERS: PCP Internal Medicine; Visit Provider Internal Medicine
DX: Z11.4 Encounter for screening for human immunodeficiency virus [HIV] (principal); R63.4 Abnormal weight loss; F31.9 Bipolar disorder, unspecified
CPT/HCPCS: 36415; 71046; 80053; 82607; 82746; 84439; 84443; 85025; 86706; 86780; 86803; 87389

== ENCOUNTER 2023-06-16 04:26 | Emergency (ER) | payer MEDICAID, SELFPAY ==
--- NOTE | ~2023-06-16 | XR_ITS ---
EXAMINATION: XR SHOULDER, RIGHT CLINICAL INFORMATION: Fall. Pain. COMPARISON: None available. TECHNIQUE: Three views of the right shoulder. FINDINGS: The bones and soft tissues are normal. No fracture. Glenohumeral and acromioclavicular alignment is anatomic with normal joint space. No abnormal soft tissue calcifications. XR/XR shoulder RT min 2V IMPRESSION: Normal right shoulder.
--- NOTE | ~2023-06-16 | XR_ITS ---
EXAMINATION: XR KNEE, LEFT CLINICAL INFORMATION: Fall. Pain. COMPARISON: None available. TECHNIQUE: AP and lateral views of the left knee. FINDINGS: No fracture or joint effusion. Alignment is anatomic. Joint spaces are maintained. No abnormal soft tissue calcification. XR/XR knee LT 2V IMPRESSION: Normal left knee.
[2023-06-16 04:37] VITALS: BP 130/70; BP 140/81; PULSE 72; PULSE 80; RESP 14; TEMP 36.6; O2SAT 98; O2SAT 99; BMI 28.3
--- NOTE | 2023-06-16 04:46 | PC.NURSE ---
pt denies si/hi; reports took extra klonopin bc was feeling anxious/depressed. hx of these sx.
--- NOTE | 2023-06-16 05:14 | ED.FALL ---
HPI - Fall General Chief Complaint: Fall Stated Complaint: KNEE PAIN, NECK PAIN, LOWER BACK PAIN Time Seen by Provider: 06/16/23 05:03 Source: patient and family Mode of arrival: EMS Limitations: no limitations History of Present Illness HPI Narrative: patient comes to the emergency room after sustaining a fall. Patient states that he was out walking, take to [employer], fell in a sidewalk. Patient states that he has knee pain on the left and right shoulder pain. Patient denies hitting his head, no loss of consciousness. Patient states that he has mild bilateral pain, middle and lower back pain bilaterally. patient states that he was not feeling too much pain after falling, patient was considering coming back home. However, bystanders made him stay and called 911 Related Data Previous Rx's Medication Instructions Recorded emtricitabine 200 mg-tenofovir 1 tab PO QAM #30 tabs 02/10/23 disoproxil fumarate 300 mg tablet (Truvada) raltegravir 400 mg tablet 400 mg PO BID #60 tabs 02/10/23 (Isentress) cyclobenzaprine 10 mg tablet 10 mg PO TID PRN muscle spasm #7 06/16/23 tabs ibuprofen 600 mg tablet 600 mg PO Q6H PRN fever or pain 06/16/23 #20 tabs Allergies Allergy/AdvReac Type Severity Reaction Status Date / Time No Known Allergies Allergy Verified 02/09/23 12:38 Review of Systems Review of Systems: Constitutional : No Weight loss, No Fever, No Chills, No Night Sweats, No Fatigue, No Malaise ENT/Mouth : No Hearing loss, No Ear Pain, No Nasal Congestion, No Sinus Pain, No Hoarseness, No sore throat, No Rhinorrhea, No Swallowing Difficulty Eyes: No Eye Pain, No Swelling, No Redness, No Foreign Body, No Discharge, No Vision Changes Cardiovascular : No Chest Pain, No SOB, No Dyspnea on Exertion, No Orthopnea, No Edema, No Palpitations Respiratory : No Cough, No Sputum, No Wheezing, No Smoke Exposure, No Dyspnea Gastrointestinal : No Nausea, No Vomiting, No Diarrhea, No Constipation, No abdominal Pain, No Hematochezia, No Melena Genitourinary : no irregular bleeding, No Dysuria, No Urinary Frequency, No Hematuria, No Urinary Incontinence, No Urgency, No Flank Pain, No Urinary Flow Changes, No Hesitancy Musculoskeletal : Complaining of left knee pain, right shoulder pain, bilateral back pain Skin : No Skin Lesions, No rash Neuro : No Weakness, No Numbness, No Paresthesias, No Loss of Consciousness, No Dizziness, No Headache Psych : No Anxiety/Panic, No Depression, No SI/HI/AH/VH, took 2 Klonopin prior to falling Heme/Lymph: No Bruising, No Bleeding,No Lymphadenopathy Endocrine : No Polyuria, No Polydipsia, No Temperature Intolerance [facility] [place] Social History Social History Alcohol intake: never Smoked in Last 30 Days: No Use of substances other than those prescribed or required for medical reasons: Yes Substance Use Type: Marijuana Advance Directives: No Advance Directives Information Provided: No 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 Oriented X3. No acute distress. Eyes: Pupils equal, round and reactive to light. ENT: Pharynx normal. Neck: Normal inspection. Neck supple. No lymph nodes noted. No crepitus, no C-spine tenderness, no palpable step-offs CVS: Normal heart rate and rhythm. Pulses normal. Normal S1 and S2 Respiratory: No respiratory distress. Breath sounds normal. No Wheezing. No rales Abdomen: Soft and nontender. No rigidity. No distention. Skin: Skin warm and dry. Normal skin color. Normal skin turgor. Extremities: No lower extremity edema. No Lacerations. No Rash pain is able to abduct the right arm but hurts doing so. Only up to 45 degrees. Patient is able to flex and extend the knee but hurts doing so. Neuro: Oriented X 3. No motor deficit. No sensory deficit. Moving all extremities. No slurred speech. CN 2 through 12 grossly intact Psych: calm, cooperative, normal affect Course Course Course Narrative: - patient's x-rays pending Medical Decision Making Medical Decision Making MDM Narrative: - my interpretation of x-ray of the shoulder and the knee: Normal alignment, no fractures. Differential Diagnosis Differential Diagnoses: The differential diagnosis associated with the presentation includes ( shoulder/ knee contusion, fracture, dislocation) Independent Interpretation I performed an independent interpretation of an: Plain X-Ray Radiology Impression Discussion of test interpretation with radiology: I have reviewed the radiologist's reading. Radiologist Impression: Normal right shoulder. Normal left knee. Discharge Plan Discharge Clinical Impression: Fall, Contusion Patient Disposition: Home, Self-Care Instructions: Contusion in Adults (ED) Additional Instructions: Please follow-up with your primary care physician tomorrow. If you have any worsening or new symptoms, please return to the emergency room or call 911 Prescriptions: New ibuprofen 600 mg tablet 600 mg PO Q6H PRN (Reason: fever or pain) Qty: 20 0RF cyclobenzaprine 10 mg tablet 10 mg PO TID PRN (Reason: muscle spasm) Qty: 7 0RF No Action emtricitabine-tenofovir (TDF) [Truvada] 200-300 mg tablet 1 tab PO QAM Qty: 30 0RF Isentress 400 mg tablet 400 mg PO BID Qty: 60 0RF
[2023-06-16 06:25] VITALS: PULSE 70; RESP 16; O2SAT 97
== END 2023-06-16 06:26 | disposition home or self-care (01) ==
PROVIDERS: Emergency Provider Emergency Medicine; PCP Internal Medicine
DX: S80.01XA Contusion of right knee, initial encounter (principal); S80.02XA Contusion of left knee, initial encounter; M54.2 Cervicalgia; R51.9 Headache, unspecified; M54.50 Low back pain, unspecified; W01.0XXA Fall on same level from slipping, tripping and stumbling without subsequent striking against object, initial encounter; Y93.9 Activity, unspecified; Y92.480 Sidewalk as the place of occurrence of the external cause; Y99.9 Unspecified external cause status; Z79.899 Other long term (current) drug therapy
CPT/HCPCS: 73030; 73560; 99283; 99284

== ENCOUNTER 2023-11-26 13:33 | Outpatient (AMB) | payer OTHER, SELFPAY ==
[2023-11-26 13:36] VITALS: BP 132/68; PULSE 64; O2SAT 97; BMI 29.4
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
== END 2023-11-26 15:31 | disposition home or self-care (01) ==
PROVIDERS: Visit Provider Internal Medicine
DX: B19.20 Unspecified viral hepatitis C without hepatic coma (principal); S42.025D Nondisplaced fracture of shaft of left clavicle, subsequent encounter for fracture with routine healing; E66.3 Overweight; K80.20 Calculus of gallbladder without cholecystitis without obstruction; R53.83 Other fatigue
CPT/HCPCS: 99204

== ENCOUNTER 2023-11-27 13:30 | Outpatient (REF) | payer OTHER, SELFPAY ==
[2023-11-27 13:51] LABS: MANUAL DIFF FLAG NO
[2023-11-27 14:21] LABS: Basophils Percent Auto 0.3 % (0-2); Eosinophils Absolute Auto 0.3 X10*3/uL (0.0-0.4); Eosinophils Percent Auto 4.7 % (0-4); Hematocrit 45.1 % (42.0-52.0); Imm Gran Abs Auto 0.03 X10*3/uL (0.00-0.03); Imm Gran Pct Auto 0.5 % (0.0-0.4); Lymphocytes Absolute Auto 1.6 X10*3/uL (1.2-4.9); Mean Corpuscular HGB Conc 35.5 g/dl (31.0-36.0); Mean Corpuscular Hemoglobin 30.6 pg (27.0-33.0); Mean Corpuscular Volume 86.2 fL (80.0-98.0); Mean Platelet Volume 9.7 fL (9.4-12.4); Monocytes Absolute Auto 0.5 X10*3/uL (0.1-1.2); Monocytes Percent Auto 8.3 % (2-11); Neutrophils Absolute Auto 3.6 x10*3/uL (2.0-8.3); Neutrophils Percent Auto 59.2 % (45-73); Platelet Count 224 X10*3/uL (160-400); Red Blood Count 5.23 X10*6/uL (4.60-5.80); Red Cell Distribution Width 12.5 % (11.0-16.0)
[2023-11-27 14:25] LABS: Appearance Urine Clear; Color Urine Yellow; Glucose Urine UA Negative (Negative); Leukocyte Esterase Urine Negative (Negative); Nitrite Urine Negative (Negative); PH 5.5 (5.0-9.0); Specific Gravity - Urine >= 1.030 (1.005-1.025); Urine Blood Negative (Negative); Urine Ketones Trace mg/dL (Negative); Urine Protein Trace mg/dL (Neg-Trace)
[2023-11-27 15:06] LABS: Alanine Aminotransferase 13 U/L (0-40); Albumin Level 4.6 g/dL (3.5-5.0); Alkaline Phosphatase 31 U/L (39-117); Anion Gap 12 (12-20); Aspartate Amino Transferase 16 U/L (5-37); Bilirubin Total 0.8 mg/dL (0.0-1.0); Blood Urea Nitrogen 12 mg/dL (9-16); Calcium 9.6 mg/dL (8.4-10.2); Carbon Dioxide 26 mmol/L (22-29); Chloride 106 mmol/L (96-108); Cholesterol 162 mg/dL (<200); Estimated Glomerular Filt Rate > 60; Glucose Random 93 mg/dL (60-115); HDL Cholesterol 46 mg/dL (>40); LDL Cholesterol Calculated 98 mg/dL (<100); Potassium 3.6 mmol/L (3.3-5.1); Sodium 140 mmol/L (135-145); Total Protein 7.5 g/dL (6.5-8.0); Triglycerides 90 mg/dL (<150)
[2023-11-27 15:21] LABS: Free T4 (Free Thyroxine) 0.99 ng/dL (0.71-1.85); Thyroid Stimulating Hormone 0.74 uIU/mL (0.32-4.0)
[2023-11-27 15:25] LABS: Folate 7.5 ng/mL (> or = 4.0); Vitamin B12 306 pg/mL (200-900)
[2023-11-28 03:25] LABS: HIV AB/AG Nonreactive (Nonreactive); HIV Num 1 0.05 S/CO (0.00-0.99)
== END 2023-11-27 13:31 | disposition home or self-care (01) ==
LOC: HO.LAB 13:30
PROVIDERS: PCP Internal Medicine; Visit Provider Internal Medicine
DX: R53.83 Other fatigue (principal); E78.00 Pure hypercholesterolemia, unspecified; R30.0 Dysuria
CPT/HCPCS: 36415; 80053; 80061; 81003; 82607; 82746; 84403; 84439; 84443; 85025; 87389

== ENCOUNTER 2024-05-06 13:45 | Outpatient (AMB) | payer OTHER, SELFPAY ==
[2024-05-06 13:47] VITALS: BP 112/74; PULSE 67; O2SAT 94; BMI 30.5
--- NOTE | 2024-05-06 13:47 | MHC.PC.OV ---
Vital Signs 05/06/24 13:47 Height 5 ft 7 in Weight 195 lb BMI 30.5 BP 112/74 Blood Pressure Location Lt brachial Position Sitting Pulse 67 Pulse Source Pulse Oximeter Pulse Oximetry (%) 94 Oxygen Delivery Method Room Air Intake Visit Reasons: [employer] Research Scientist Required: No Accompanied by: Self / Same As Patient Allergies No Known Allergies Allergy (Verified 05/06/24 13:47) Medication List - Last Reconciled 05/06/24 by Gabrielle Somers MD No Known Home Meds Tobacco use date assessed: 11/26/23 Dental Screening Dental Screen Date: 11/26/23 HPI PE HPI Details 38-year-old obese male with a history of cholelithiasis coming in for physical exam. Patient complains of feeling tired all day long has been sleepy after a meal as well as in the afternoon but does not complain of problems with driving. Patient complains of fatigue. Discussed about blood work [facility] Medical History H/O intravenous drug use Surgical History (Updated 11/26/23 @ 13:51 by Gabrielle Somers MD) Cleft lip and palate Family History (Updated 11/26/23 @ 13:52 by Gabrielle Somers MD) Paternal Grandfather Myocardial infarct Prostate cancer Maternal Grandmother Myocardial infarct Mother Lymphoma Social History (Updated 05/06/24 @ 14:11 by Gabrielle Somers MD) Housing: Apartment Alcohol intake: current Alcohol intake frequency: does not drink Comment: once a month 2 drinks Patient Tobacco Use Status: Former Tobacco user Tobacco use type: Cigarette Years Smoked: stopped 1999. 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 1. Little interest or pleasure in doing things: several days 2. Feeling down, depressed, or hopeless: several days 3. Trouble falling or staying asleep, or sleeping too much: several days 4. Feeling tired or having little energy: nearly every day 5. Poor appetite or overeating: several days 6. Feeling bad about yourself - or that you are a failure or have let yourself or your family down: several days 7. Trouble concentrating on things, such as reading the newspaper or watching television: several days 8. Moving or speaking so slowly that other people could have noticed. Or the opposite - being so fidgety or restless that you have been moving around a lot more than usual: not at all 9. Thoughts that you would be better off or of hurting yourself in some way: not at all Total score: 9 Source: Developed by Drs. Kishor Jaramillo, Yarely Thomason, Myron Varela and colleagues, with an educational josette from [employer]. Thrive Questionnaire Date Thrive assessed: 04/29/24 I am a: Patient What is your living situation today?: I have a steady place to live Within the past 12 months, did the food you bought not last and you didn't have the money to get more?: Never true Within the past 12 months, did you worry whether your food would run out before you got money to buy more?: Sometimes True Do you have trouble paying for medicines?: No Do you have trouble getting transportation to medical appointments?: No Do you have trouble paying your heating and electricity bill?: No Do you have trouble taking care of your child, family member or friend?: Yes Do you have trouble with day-to-day activities such as bathing, preparing meals, shopping, managing finances, etc.?: Yes Are you currently unemployed and looking for a job?: No Are you interested in more education?: Yes Please select the resources that you would like help with: None Currently or been in a relationship where the following occur: No concerns reported THRIVE Score: 1 AUDIT C Alcohol Use Questionnaire (AUDIT-C) 1. How often do you have a drink containing alcohol?: Never 2. How many drinks containing alcohol do you have on a typical day when you are drinking?: 1 or 2 3. How often do you have six or more drinks on one occasion?: Never Total Score: 0 LOUIS-7 AMB Questionnaire LOUIS-7 Date LOUIS - 7 assessed: 11/26/23 Feeling nervous, anxious, or on edge: 3 = Nearly every day Not being able to stop or control worryin = Several days Worrying too much about different things: 1 = Several days Trouble relaxin = Several days Being so restless that it is hard to sit still: 1 = Several days Becoming easily annoyed or irritable: 1 = Several days Feeling afraid as if something awful might happen: 1 = Several days Total LOUIS-7 score (0-4 normal; 5-9 mild; 10-14 moderate; 15-21 severe): 9 Source: Developed by Drs. Kishor Jaramillo, Yarely Thomason, Myron Varela and colleagues, with an educational josette from [employer]. Review of Systems Const Denies poor appetite and Denies weakness Eyes Denies no additional complaints ENT Reports Normal hearing present, Denies dizziness, Denies nasal congestion, Denies tinnitus and Denies sore throat Card Denies chest pain, Denies syncope, Denies rapid heart rate and Denies dyspnea Resp Denies cough and Denies dyspnea GI Denies change in stool character, Reports constipation, Denies diarrhea, Denies nausea and Denies vomiting Denies dysuria and Denies urinary frequency Neuro Reports Normal hearing present, Denies confusion, Denies dizziness, Denies syncope and Denies weakness Psych Denies confusion Physical exam (Primary Care) Vital Signs: Last Vital Signs Pulse 67 05/06/24 13:47 BP 112/74 05/06/24 13:47 Pulse Ox 94 05/06/24 13:47 Oxygen Delivery Method Room Air 05/06/24 13:47 BMI result Body Mass Index 30.5 Tobacco/Smoking Status: Tobacco use Status Tobacco use date assessed 11/26/23 05/06/24 13:52 Patient Tobacco Use Status Former Tobacco user 05/06/24 13:52 Tobacco use type Cigarette 05/06/24 13:52 e-Cigarette/Vaping Use Never Used 05/06/24 13:52 PHQ-9: PHQ-9 Score PHQ-9: Total score 9 05/06/24 13:52 Thrive Assessment: Date of Thrive Assessment Date Thrive assessed 04/29/24 05/06/24 13:52 Currently or been in a relationship where the following occur: No concerns reported Const General: No confusion Orientation/consciousness: No confusion HENMT Head: Yes normocephalic Ears: external ears normal and TM's normal bilaterally Face and sinus: Yes normal facial exam Mouth: moist mucous membranes Throat: Yes tonsils normal Eyes Conjunctivae: conjunctivae normal Pupils: Equal, round and reactive pupils present and Pupil accommodation reflex normal Direct Ophthalmoscopy: normal light reflex Neck Neck: No lymphadenopathy Thyroid: Thyroid normal Chest Chest palpation & inspection: normal inspection of the chest Resp Effort & Inspection: normal respiratory effort and no audible wheezes Auscultation: clear to auscultation bilaterally, no crackles, no wheezes and lung sounds not diminished Cardio Rate: regular rate Rhythm: regular rhythm Peripheral pulses: radial pulses present and dorsalis pedis present GI Other: Visual rectal exam is negative Palpation (GI): no masses Auscultation: normal bowel sounds and normoactive bowel sounds Rectal Exam - Male: Yes deferred Male General Exam: Yes normal external exam Skin General skin exam: no rashes or lesions noted Rashes: no rashes Neuro General: No confusion Cranial nerves: Yes Equal, round and reactive pupils present and Yes Normal hearing present Cognition (Neuro): normal cognition Gait exam (Neuro): Normal gait present Motor exam (neuro): 5/5 motor strength present throughout Deep tendon reflexes (DTR's): Right brachioradialis reflex intensity grade: 2+, Left brachioradialis reflex intensity grade: 2+, Right patellar reflex intensity grade: 2+ and Left patellar reflex intensity grade: 2+ Extrem General: No edema Coding Level of Care Code Est Pt Prev Care 18-39y(68532) Diagnoses Annual physical exam Z00.00 Calculus of gallbladder without cholecystitis without obstruction K80.20 Cholelithiasis location: gallbladder Cholecystitis presence: without cholecystitis Biliary obstruction: without biliary obstruction Obesity (BMI 30.0-34.9) E66.811 Urinary incontinence, unspecified type R32 Urinary Incontinence type: unspecified incontinence Generalized anxiety disorder F41.1 Assessment & Plan Assessment & Plan (1) Annual physical exam: Code(s): Z00.00 - Encounter for general adult medical examination without abnormal findings Category: Medical Plan: Patient is advised to eat healthy, keep well hydrated, keep active and have adequate sleep. (2) Cholelithiases: Comment: 12/2022 Code(s): K80.20 - Calculus of gallbladder without cholecystitis without obstruction Category: Medical Qualifiers: Cholelithiasis location: gallbladder Cholecystitis presence: without cholecystitis Biliary obstruction: without biliary obstruction Qualified Code(s): K80.20 - Calculus of gallbladder without cholecystitis without obstruction Plan: Low-fat diet and exercise (3) Obesity (BMI 30.0-34.9): Code(s): E66.811 - Obesity, class 1 Category: Medical Plan: Patient is strongly advised to eat healthy and keep active to lose weight. (4) Urinary incontinence: Code(s): R32 - Unspecified urinary incontinence Category: Medical Qualifiers: Urinary Incontinence type: unspecified incontinence Qualified Code(s): R32 - Unspecified urinary incontinence Plan: Urinalysis requested as well as ultrasound of the bladder (5) Generalized anxiety disorder: Comment: private counsellor Code(s): F41.1 - Generalized anxiety disorder Category: Medical Plan: Continue with counseling. Orders: Orders RT home sleep study Today G47.10 - Hypersomnia, unspecified US bladder Today R32 - Unspecified urinary incontinence AMB Urinalysis Automated Today R32 - Unspecified urinary incontinence, Z13.9 - Encounter for screening, unspecified
== END 2024-05-06 14:26 | disposition home or self-care (01) ==
PROVIDERS: PCP Internal Medicine; Visit Provider Internal Medicine
DX: Z00.00 Encounter for general adult medical examination without abnormal findings (principal); K80.20 Calculus of gallbladder without cholecystitis without obstruction; Z68.30 Body mass index [BMI] 30.0-30.9, adult; E66.811 Obesity, class 1; R32 Unspecified urinary incontinence; F41.1 Generalized anxiety disorder

== ENCOUNTER → 2024-05-06 13:45 | Outpatient (BNVA) | payer OTHER, SELFPAY | PROVIDERS: PCP Internal Medicine; Visit Provider Internal Medicine | DX: Z00.00 Encounter for general adult medical examination without abnormal findings (principal); K80.20 Calculus of gallbladder without cholecystitis without obstruction; E66.811 Obesity, class 1; Z68.30 Body mass index [BMI] 30.0-30.9, adult; R32 Unspecified urinary incontinence; F41.1 Generalized anxiety disorder; Z71.3 Dietary counseling and surveillance | CPT/HCPCS: 81003; 96127; 99395 ==

== ENCOUNTER 2024-05-13 13:46 | Outpatient (REF) | payer OTHER, SELFPAY | END 2024-05-13 13:47 | disposition home or self-care (01) | LOC: HO.US 13:46 | PROVIDERS: PCP Internal Medicine; Visit Provider Internal Medicine | DX: Z13.89 Encounter for screening for other disorder (principal) ==

== ENCOUNTER 2024-05-15 14:29 | Outpatient (REF) | payer OTHER, SELFPAY | END 2024-05-15 14:30 | disposition home or self-care (01) | LOC: HO.US 14:29 | PROVIDERS: PCP Internal Medicine; Visit Provider Internal Medicine | DX: R32 Unspecified urinary incontinence (principal) | CPT/HCPCS: 76857 ==

== ENCOUNTER → 2024-06-12 14:52 | Outpatient (REF) | payer OTHER, SELFPAY | LOC: HO.SL 14:52 | PROVIDERS: PCP Internal Medicine; Visit Provider Internal Medicine | DX: G47.10 Hypersomnia, unspecified (principal) | CPT/HCPCS: 95806 ==

== ENCOUNTER → 2024-06-13 15:01 | Outpatient (BNV) | payer OTHER, SELFPAY | PROVIDERS: PCP Internal Medicine; Visit Provider Internal Medicine | DX: G47.10 Hypersomnia, unspecified (principal); R06.83 Snoring | CPT/HCPCS: 95806 ==

== ENCOUNTER 2024-08-14 07:59 | Outpatient (REF) | payer OTHER, SELFPAY ==
--- NOTE | ~2024-08-14 | US_ITS ---
EXAMINATION: US COMPLETE ABDOMEN WITH LIVER ELASTOGRAPHY CLINICAL INFORMATION: History chronic hepatitis. COMPARISON: 01/05/2023 TECHNIQUE: Real-time imaging of the abdominal viscera. Noninvasive ultrasound liver fibrosis assessment is performed using Kareen ElastPQ point quantification shear wave elastography (pSWE) with a C5-2 MHz transducer. Multiple elastography samples are obtained. FINDINGS: PANCREAS: The visualized pancreatic head and body are normal in appearance. The remainder of the pancreas is obscured from visualization by the overlying bowel gas. ABDOMINAL AORTA: No aortic aneurysm is seen. INFERIOR VENA CAVA: Visualized portions are normal. LIVER: The liver demonstrates normal size, contour and minimally increased diffuse echogenicity. No focal lesion or intrahepatic biliary duct dilatation. The right lobe measures 15.0 cm in length. The left lobe measures 9.6 cm in length. Portal flow is towards the liver (hepatopetal). Shear wave liver elastography median stiffness is 1.48 m/s (reference: normal median stiffness is 1.3 m/s or less). (Previously measured 1.89 m/s) IQR/median stiffness to assess sampling precision is 0.15 (reference: good quality data set is IQR/median stiffness of 0.15 or less). GALLBLADDER: There are intraluminal gallstones. No gallbladder wall thickening, pericholecystic fluid, or positive sonographic De La Cruz's sign. COMMON BILE DUCT: Normal in caliber measuring 0.2 cm in diameter. RIGHT KIDNEY: No hydronephrosis. No renal calculi or focal parenchymal lesions. The kidney measures 10.5 cm in maximum dimension. LEFT KIDNEY: No hydronephrosis. No renal calculi or focal parenchymal lesions. The kidney measures 10.6 cm in maximum dimension. SPLEEN: Unremarkable. The spleen measures 10.7 cm in maximum dimension. FREE FLUID: None seen. US/US abdomen comp w elastography IMPRESSION: 1. Normal hepatic size with mildly increased echogenicity present. No focal lesion. 2. Liver elastography: In the absence of other known clinical signs, measurements rule out compensated advanced chronic liver disease. If there are known clinical signs, further testing may be needed for confirmation. When compared with prior exam, there is a statistically significant decrease in liver stiffness (decrease at least 10%). 3. Cholelithiasis. No evidence of gallbladder inflammation. 4. Remainder of the exam is normal. REFERENCE: Society of Radiologists in Ultrasound Liver Stiffness Thresholds (2020): LIVER STIFFNESS THRESHOLDS: *Liver Stiffness equal or less than 1.3 m/s: High probability of being normal. *Liver Stiffness less than 1.7 m/s: In the absence of other known clinical signs, rules out compensated advanced chronic liver disease. *Liver Stiffness 1.7-2.1 m/s: Suggestive of compensated advanced chronic liver disease but need further test for confirmation. *Liver Stiffness over 2.1 m/s: Rules in compensated advanced chronic liver disease. *Liver Stiffness over 2.4 m/s: Suggestive of clinically significant portal hypertension. QUALITY OF DATA SET: *IQR/Median value equal or less than 0.15 implies a quality data set. *IQR/Median value over 0.15 implies a poor quality data set. SIGNIFICANT CHANGE FROM PRIOR EXAM: Significant change if liver stiffness measurement is 10% or greater from prior exam. OTHER CONSIDERATIONS: The stage of liver fibrosis may be overestimated in the setting of acute hepatitis, liver inflammation, elevated liver function tests, hepatic vascular congestion, obstructive cholestasis, non-fasting state, and infiltrative diseases such as amyloidosis and lymphoma. In some patients with NAFLD, the liver stiffness thresholds for compensated advanced chronic liver disease may be lower. In causes other than viral hepatitis and NAFLD, liver stiffness thresholds are not well established. Electronically signed by: Allen Serrano MD 08/14/2024 03:19 PM [facility]
--- OUTSIDE RECORDS SUMMARY | 2024-08-14 08:02 | XMS_ITS ---
Author Organization [facility] Address [address] [place] [address] Care Team Providers Care Loop Sewer Name Role Phone Gabrielle Somers MD Primary Care Provider Kishor Saavedra [phone] ALLERGIES No Known Allergies REASON FOR VISIT Patient presents today for hx of hep c MEDICATIONS Medication SIG (Take, Route, Frequency, Duration) Notes Start Date End Date Status QUEtiapine Fumarate ER 300 MG Oral for 30 Active Methadone HCl 10 MG/5ML 5 mL as needed Orally Once a day On 7mg QD as of 12/21/2022 Active Gabapentin 100 MG Oral for 30 Active IMMUNIZATIONS Vaccine Route Administration Date Status Comme nts Influenza Unknown 07/16/2024 Refused SOCIAL HISTORY Tobacco Use: Social History Observation Description Date Details (start date - stop date) Former Smoker NA - NA Sex Assigned At : Social History Observation Description Sex Assigned At Unknown Tobacco Use/Smoking Question Answer Notes Patient is a former smoker How long has it been since you last smoked? > 10 years Alcohol Screen Question Answer Notes Did you have a drink containing alcohol in the p ast year? No Points 0 Interpretation Negative VITAL SIGNS BMI 29.92 kg/m2 07/16/2024 Blood pressure systolic 000 mm Hg 07/16/19 25 Blood pressure diastolic 00 mm Hg 025 Height 66 in 07/16/2024 Temperature 97.7 degrees Fahrenheit 07/16/19 25 Weight 185 lb 6 oz lbs 07/16/2024 Encounters Encounter Location Date Provider Diagnosis [facility] [address] [place] [address] 07/16/2024 Kishor Rosas Calculus of gallblad sebas without cholecystitis without obstruction K80.20 and History of chronic hepatitis Z87.19 ASSESSMENTS Encounter Date Diagnosis Assessment Notes Treatment Notes Treatment Clinical Notes 07/16/2024 Calculus of gallbladder without cholecystitis without obstruction (ICD-10 - K80.20) 07/16/2024 History of chronic hepatitis (ICD-10 - Z87.19) PLAN OF TREATMENT Pending Test Test Name Order Date LIVER PROFILE 07/16/2024 CBC w DIFF 07/16/2024 ALPHA-FETOPROTEIN,TUMOR MARKER HEPATITIS C VIRAL LOAD 07/16/2024 HCV LIVER FIBROSIS, FIBRO TEST Prothrombin Time INR 07/16/2024 US abdomen comp w elastography Next Appt Details Follow Up: 1 Year, Reason: Provider Name:Kishor Rosas , 07/17/2025 01:20:00 PM, [address], [address], [place], [address], Progress Notes * Examination Category Sub-Category Detail Notes General Examination GENERAL APPEARANCE: pleasant , well nourished, well developed, in no acute distress HEAD: EYES: sclera non-icteric EARS: NOSE: THROAT: NECK/THYROID: no cervical lymphade nopathy, neck supple HEART: S1, S2 normal CHEST: LUNGS: clear to auscultatio n bilaterally ABDOMEN: normal bowel sounds, no guarding or rigidity, no guarding or rigidity, no masses palpable, soft, nontender, nondistended NEUROLOGIC: alert and oriented SKIN: nonjaundiced, no spi sebas angiomata EXTREMITIES: no edema PERIPHERAL PULSES: BACK: BREASTS: MUSCULOSKELETAL: MALE GENITOURINARY: LYMPH NODES: RECTAL EXAM: FEMALE GENITOURINARY: ORAL CAVITY: mucosa moist
--- OUTSIDE RECORDS SUMMARY | 2024-08-14 08:02 | XMS_ITS | Encounter Summary ---
Author Organization [facility] Address [address] [place] [address] Care Team Providers Care Milk Runner Name Role Phone Unavailable Primary Care Provider Unavailabl e Encounter Details Date Type Department Care Team (Latest Contact Info) Description 02/01/2022 Abstract C CONVERSIONS Dental, Provider, DDS Social History Tobacco Use Types Packs/Day Years Used Date Smoking Tobacco: Never Assessed Sex and Gender Information Value Date Recorded Sex Assigned at Male 04/24/2022 10:17 AM EDT Legal Sex Male 10:17 AM EDT Gender Identity Male 04/24/2022 10:17 AM EDT Sexual Orientation Straight 04/24/2022 10 :17 AM EDT documented as of this encounter Plan of Treatment Not on file documented as of this encounter Visit Diagnoses Not on filedocumented in this encounter
--- OUTSIDE RECORDS SUMMARY | 2024-08-14 08:02 | XMS_ITS | Patient Health Record ---
Author Organization [facility] Address [address] [place] [address] Care Team Providers Care Roofing Plant Supervisor Name Role Phone Gabrielle Somers MD Primary Care Provider Kishor Saavedra [phone] ALLERGIES No Known Allergies REASON FOR REFERRAL No Information MEDICATIONS Medication SIG (Take, Route, Frequency, Duration) Notes Start Date End Date Status QUEtiapine Fumarate ER 300 MG Oral for 30 Active Methadone HCl 10 MG/5ML 5 mL as needed Orally Once a day On 7mg QD as of 12/21/2022 Active Gabapentin 100 MG Oral for 30 Active IMMUNIZATIONS Vaccine Route Administration Date Status Comme nts Influenza Unknown 11/12/2019 Refused Influenza Unknown 07/16/2024 Refused SOCIAL HISTORY Tobacco [...] ast year? No Points 0 Interpretation Negative PROBLEMS Problem Type ICD Code Onset Dates Problem Status W/U Status Risk SNOMED Code Notes Problem Chronic hepatitis C with hepatic coma (B18.2) Active confirmed [id number] Problem Chronic hepatitis C without hepatic coma (B18.2) Active confirmed 957828772 Problem Calculus of gallbladder without cholecystitis without obstruction (K80.20) Active confirmed 16968201 VITAL SIGNS Temperature 97.7 degrees Fahrenheit 07/16/2024 Blood pressure diastolic 00 mm Hg 07/16/2024 Height 66 in 07/16/2024 Blood pressure systolic 000 mm Hg 07/16/2024 Weight 185 lb 6 oz lbs 07/16/2024 BMI 29.92 kg/m2 07/16/2024 Encounters Encounter Location Date Provider Diagnosis [facility] [address] [place] [address] 03/07/2024 Kishor Rosas [facility] [address] [place] [address] 07/16/2024 Kishor Rosas Calculus of gallblad sebas without cholecystitis without obstruction K80.20 and History of chronic hepatitis Z87.19 [facility] [address] [place] [address] 03/07/2024 Kishor Rosas [facility] [address] [place] [address] 03/21/2024 Kishor Rosas ASSESSMENTS Encounter Date Diagnosis Assessment Notes Treatment Notes Treatment Clinical Notes 07/16/2024 Calculus of gallbladder without cholecystitis without obstruction (ICD-10 - K80.20) 07/16/2024 History of chronic hepatitis (ICD-10 - Z87.19) PLAN OF TREATMENT Pending Test Test Name Order Date LIVER PROFILE 06/14/2021 LIVER PROFILE 11/12/2019 LIVER PROFILE 07/16/2024 LIVER PROFILE 05/24/2019 LIVER PROFILE 06/15/2020 CBC w DIFF 06/14/2021 CBC w DIFF 11/12/2019 CBC w DIFF 07/16/2024 CBC w DIFF 05/24/2019 PROTHROMBIN TIME (PT, INR) 06/14/2021 ALPHA-FETOPROTEIN,TUMOR MARKER 5 ALPHA-FETOPROTEIN,TUMOR MARKER 1 HEPATITIS C VIRAL LOAD 05/24/2019 HEPATITIS C VIRAL LOAD 12/21/2022 HEPATITIS C VIRAL LOAD 11/12/2019 HEPATITIS C VIRAL LOAD 07/16/2024 HEPATITIS C VIRAL LOAD 06/14/2021 HEPATITIS C VIRAL LOAD 06/15/2020 US ABD 06/14/2021 HCV LIVER FIBROSIS, FIBRO TEST 9 HCV LIVER FIBROSIS, FIBRO TEST 3 HCV LIVER FIBROSIS, FIBRO TEST 5 HCVVL REFLEX GENOTYPE REFLEX NS5A 2018 US ABDOMEN COMP WITH ELASTOGRAPHY 2022 Prothrombin Time INR 07/16/2024 Hep C Viral Load 07/18/2021 US abdomen comp w elastography 3 US abdomen comp w elastography 5 Next Appt Details Provider Name:Kishor Rosas , 07/17/2025 01:20:00 PM, [address], [address], [place], [address], Insurance Providers Payer Name Payer Address Payer Phone Subscriber Number Group Number Insured Name Patient Relationship to Insured Coverage Start Date Coverage End Date Space Ape [facility] [address] [address] [place], [place] [id number] [phone] [id number] XIMENA SHRESTHA Self - patient is the insured MEDICAID [facility] [address] [place] [id number] XIMENA SHRESTHA Self - patient is the insured MEDICAL (GENERAL) HISTORY Medical History History ICD Code Denies [place],DM,CVA,Lung disease,renal dise ase Hepatitis C--diagnosed at ag e 18-Hepatitis C genotype 1--he had a liver biopsy in 2004 describing only mild changes, with a grade 0-1 inflammation and stage I fibrosis. He has never been treated for hepatitis C. He finished a 12 weeks of Epclusa at the end of August,--he had a nondetectable hepatitis C viral load in July of 2019 and in 11/2019 He has had negative HIV and hepatitis B antigen studies in the past, he has had a positive hepatitis B surface antibody, and negative hepatitis A IgG antibody--he was given a prescription for the hepatitis A vaccine in 2004 but it is not clear if he ever actually received the injections Gallstones seen on ultrasoun d in 2015--these have been asymptomatic--I did review potential symptoms of gallbladder disease with him and potential need for surgery at the 05/13/19 OV Neg. hepatitis B profile in April of 2019. A prescription for the hepatitis B vaccine was sent to his pharmacy in October of 2019. Positive hepatitis A IgG in April of 2019. Neg. HIV test in 04/2019 fatigue Surgical History Surgery Date(Month/Year) Cleft lip repair
--- OUTSIDE RECORDS SUMMARY | 2024-08-14 08:02 | XMS_ITS ---
Author Organization [facility] Address [address] [place] [address] Care Team Providers Care Frame Polisher Name Role Phone Gabrielle Somers MD Primary Care Provider Kishor Saavedra [phone] REASON FOR VISIT called to r/s missed appt Encounters Encounter Location Date Provider Diagnosis [facility] [address] [place] [address] 03/21/2024 Kishor Rosas PLAN OF TREATMENT Next Appt Details Provider Name:Kishor Rosas , 07/17/2025 01:20:00 PM, [address], [address], [place], [address],
--- OUTSIDE RECORDS SUMMARY | 2024-08-14 08:02 | XMS_ITS ---
Author Organization [facility] Address [address] [place] [address] Care Team Providers Care Senior Asic Engineer Name Role Phone Gabrielle Somers MD Primary Care Provider Kishor Saavedra Unavailable [phone] REASON FOR VISIT Pt no show Encounters Encounter Location Date Provider Diagnosis [facility] [address] [place] [address] 03/07/2024 Kishor Rosas PLAN OF TREATMENT Next Appt Details Provider Name:Kishor Rosas , 07/17/2025 01:20:00 PM, [address], [address], [place], [address],
--- OUTSIDE RECORDS SUMMARY | 2024-08-14 08:02 | XMS_ITS | Encounter Summary ---
Author Organization [facility] Address [address] [place] [address] Care Team Providers Care Grade Setter Name Role Phone Unavailable Primary Care Provider Unavailabl e Encounter Details Date Type Department Care Team (Latest Contact Info) Description 06/01/2020 Abstract C CONVERSIONS Dental, Provider, DDS Social [...]
--- OUTSIDE RECORDS SUMMARY | 2024-08-14 08:02 | XMS_ITS | Clinical Summary ---
Author Organization [facility] Address [address] [place] [address] Care Team Providers Care Import/Export Analyst Name Role Phone Unavailable Primary Care Provider Unavailabl e Allergies No known active allergies Medications No known medications Social History Tobacco Use Types Packs/Day Years Used Date Smoking Tobacco: Never Passive Smoke Exposure: Never Smokeless Tobacco: Never Tobacco Cessation:Counseling Given: Not Answered Sex and Gender Information Value Date Recorded Sex Assigned at Male 04/24/2022 10:17 AM EDT Legal Sex Male 10:17 AM EDT Gender Identity Male 04/24/2022 10:17 AM EDT Sexual Orientation Straight 04/24/2022 10 :17 AM EDT Last Filed Vital Signs Vital Sign Reading Time Taken Comments Blood Pressure 125/82 03/02/2023 10:54 AM EDT Pulse 58 02/21/2023 9:55 AM EDT Temperature - - Respiratory Rate - - Oxygen Saturation - - Inhaled Oxygen Concentration - - Weight - - Height - - Body Mass Index - - Plan of Treatment Health Maintenance Due Date Last Done Comments Depression Screening 1985 HIV Screening 1985 Lipid Panel 1985 SDOH Screening 1985 Alcohol/Substance Use Screening 1997 Family Planning (PISQ) 2000 Hepatitis C Screening 2003 DTaP/Tdap/Td Vaccines (1 - Tdap) 2004 Hepatitis B Vaccines (1 of 3 - 19+ 3-dose series) 2004 Dental X-Ray: Full Mouth 04/10/2018 015, 12/02/2013, 12/02/2013 Dental Oral Exam 08/24/2023 02/21/2023, 03/2022, 06/01/2020, Additional history exists Dental Prophylaxis 08/24/2023 02/21/2023, 0 02/01/2022, 09/28/2020, Additional history exists Dental X-Ray: Bitewings 02/23/2024 02/22/20 23, 01/25/2023, 02/21/2022, Additional history exists COVID-19 Vaccine ( season) 2024 Influenza Vaccine (#1) 2024 Tobacco Screening 03/02/2024 03/02/2023 Zoster Vaccines (1 of 2) 2035 RSV Patients and Patients Aged 60 years or older (1 - 1-dose 75+ series) 2060 HIB Vaccines Aged Out No longer eligi ble based on patient's age to complete this topic HPV Vaccines Aged Out No longer eligi ble based on patient's age to complete this topic Hepatitis A Vaccines Aged Out No long er eligible based on patient's age to complete this topic IPV Vaccines Aged Out No longer eligi ble based on patient's age to complete this topic Meningococcal Vaccine Aged Out No bret misael eligible based on patient's age to complete this topic Pneumococcal Vaccine: Pediatrics (0 to 5 Years) and At-Risk Patients (6 to 49) Years) Aged Out No longer eligible based on patient's age to complete this topic RSV under 20 months Aged Out No longe r eligible based on patient's age to complete this topic Rotavirus Vaccines Aged Out No longer eligible based on patient's age to complete this topic Procedures Procedure Name Priority Date/Time Associated Diagnosis Comments PROPHYLAXIS - ADULT Routine 02/21/2023 1 0:00 AM EDT BITEWINGS - 4 RADIOGRAPHIC IMAGES Routine 02/21/2023 10:00 AM EDT PERIODIC ORAL EVALUATION - ESTABLISHED PATIENT Routine 02/21/2023 10:00 AM EDT PANORAMIC RADIOGRAPHIC IMAGE Routine 04/09/2015 12:00 AM EDT from Last 3 Months or Most Recently Relevant to Health Maintenance Insurance [facility] ADULT * Guarantor: Jayy Lozoya Account Type Relation to Patient Date of Phone Billing Address Personal/Family Self [address] [place] [address] * Guarantor: Jayy Lozoya Account Type Relation to Patient Date of Phone Billing Address Personal/Family Self [address] [place] [address] * Guarantor: Jayy Lozoya Account Type Relation to Patient Date of Phone Billing Address Personal/Family Self [address] [place] [address] * Guarantor: Jayy Lozoya Account Type Relation to Patient Date of Phone Billing Address Personal/Family Self [address] [place] [address]
--- OUTSIDE RECORDS SUMMARY | 2024-08-14 08:02 | XMS_ITS | Encounter Summary ---
Author Organization [facility] Address [address] [place] [address] Care Team Providers Care Rn Hedis Name Role Phone Unavailable Primary Care Provider Unavailabl e Encounter Details Date Type Department Care Team (Latest Contact Info) Description 11/26/2018 Abstract C CONVERSIONS Dental, Provider, DDS Social [...]
[2024-08-14 08:58] LABS: MANUAL DIFF FLAG NO
[2024-08-14 10:06] LABS: Basophils Percent Auto 0.3 % (0-2); Eosinophils Absolute Auto 0.2 X10*3/uL (0.0-0.4); Hematocrit 44.6 % (42.0-52.0); Hemoglobin 15.7 g/dl (14.0-18.0); Imm Gran Abs Auto 0.03 X10*3/uL (0.00-0.03); Imm Gran Pct Auto 0.5 % (0.0-0.4); Lymphocytes Absolute Auto 2.7 X10*3/uL (1.2-4.9); Lymphocytes Percent Auto 44.3 % (20-40); Mean Corpuscular HGB Conc 35.2 g/dl (31.0-36.0); Mean Corpuscular Hemoglobin 30.5 pg (27.0-33.0); Mean Corpuscular Volume 86.6 fL (80.0-98.0); Mean Platelet Volume 10.4 fL (9.4-12.4); Monocytes Absolute Auto 0.6 X10*3/uL (0.1-1.2); Monocytes Percent Auto 9.5 % (2-11); Neutrophils Absolute Auto 2.6 x10*3/uL (2.0-8.3); Neutrophils Percent Auto 42.4 % (45-73); Platelet Count 236 X10*3/uL (160-400); Red Blood Count 5.15 X10*6/uL (4.60-5.80); Red Cell Distribution Width 12.6 % (11.0-16.0); White Blood Count 6.1 X10*3/uL (4.8-10.8)
[2024-08-14 10:44] LABS: Alanine Aminotransferase 21 U/L (0-40); Albumin Level 4.4 g/dL (3.5-5.0); Alkaline Phosphatase 41 U/L (39-117); Aspartate Amino Transferase 27 U/L (5-37); Bilirubin Direct 0.2 mg/dL (0.0-0.5); Bilirubin Total 0.6 mg/dL (0.0-1.0); Total Protein 7.9 g/dL (6.5-8.0)
[2024-08-15 14:18] LABS: HCV Log PCR <1.18 NOT DETECTED Log IU/mL (NOT DETECTED); HepC Viral Load <15 NOT DETECTED IU/mL (NOT DETECTED)
[2024-08-21 11:26] LABS: Alpha Fetoprotein 1.8
[2024-08-21 11:27] LABS: Liver Fibrosis Score 0.07; Liver Fibrosis Stage F0; Nec Inflam Act Grade A0; Nec Inflam Act Score 0.04
[2024-08-21 11:28] LABS: FIB-Alpha-2-Macroglobulin 115; FIB-Haptoglobin 243 (H)
[2024-08-21 11:29] LABS: FIB-Apolipoprotein A1 101; FIB-GGT 22; FIB-Total Bilirubin 0.5
[2024-08-21 11:30] LABS: FIB-ALT 15; Reference ID 5356604
[2024-08-21 11:35] LABS: Liver Fibrosis Interpretation no fibrosis
[2024-08-21 11:36] LABS: Nec Inflam Act Interpretation no activity
== END 2024-08-14 08:00 | disposition home or self-care (01) ==
LOC: HO.US 07:59
PROVIDERS: PCP Internal Medicine; Visit Provider Internal Medicine
DX: Z87.19 Personal history of other diseases of the digestive system (principal)
CPT/HCPCS: 36415; 76700; 76981; 80076; 81596; 82105; 85025; 85610; 87522

== ENCOUNTER → 2024-08-14 08:01 | Outpatient (BNV) | payer OTHER, SELFPAY | PROVIDERS: PCP Internal Medicine; Visit Provider Radiology Diagnostic Radiology | DX: K76.6 Portal hypertension (principal) | CPT/HCPCS: 76700; 76981 ==

== ENCOUNTER 2024-09-15 10:37 | Outpatient (AMB) | payer OTHER, SELFPAY ==
--- NOTE | 2024-09-15 10:43 | A.OFFPC_ITS ---
Vital Signs 09/15/24 10:45 Height 5 ft 7 in Weight 176 lb BMI 27.6 BP 104/72 Blood Pressure Location Lt brachial Position Sitting Pulse 64 Pulse Source Pulse Oximeter Temp 97.0 F Temp Source Temporal Artery Scan Pulse Oximetry (%) 97 Oxygen Delivery Method Room Air Intake Visit Reasons: urinary incontinence, LOUIS, hypersomnia Crossbow Maker Required: No Accompanied by: Self / Same As Patient Allergies No Known Allergies Allergy (Verified 09/15/24 10:58) Tobacco use date assessed: 09/15/24 Dental Screening Dental Screen Date: 09/15/24 Did you have a dental visit in the last 12 months?: Yes Did you have a dental problem in the last 6 months where you did not have access to dental care?: No Was dental information given to patient?: Patient has dentist HPI urinary incontinence, LOUIS, hypersomnia HPI Details complains of fatigue and tired but concern on erection. hermelinda FINNEGAN DISCUSSED [facility] Medical History Hypersomnia Obesity (BMI 30.0-34.9) H/O intravenous drug use Surgical History Cleft lip and palate Family History Paternal Grandfather Myocardial infarct Prostate cancer Maternal Grandmother Myocardial infarct Mother Lymphoma Social History Housing: Apartment Alcohol intake: current Alcohol intake frequency: does not drink Comment: once a month 2 drinks Patient Tobacco Use Status: Former Tobacco user Tobacco use type: Cigarette Years Smoked: stopped 1999. 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 1. Little interest or pleasure in doing things: not at all 2. Feeling down, depressed, or hopeless: not at all 3. Trouble falling or staying asleep, or sleeping too much: not at all 4. Feeling tired or having little energy: not at all 5. Poor appetite or overeating: not at all 6. Feeling bad about yourself - or that you are a failure or have let yourself or your family down: not at all 7. Trouble concentrating on things, such as reading the newspaper or watching television: not at all 8. Moving or speaking so slowly that other people could have noticed. Or the opposite - being so fidgety or restless that you have been moving around a lot more than usual: not at all 9. Thoughts that you would be better off or of hurting yourself in some way: not at all Total score: 0 Depression Screening Interpretation: Negative Depression Screening Done: Yes 58443 - PHQ-9 Billing: Yes Source: Developed by Drs. Kishor Jaramillo, Yarely Thomason, Myron Varela and colleagues, with an educational josette from [employer] Thrive Questionnaire Date Thrive assessed: 09/15/24 I am a: Patient What is your living situation today?: I have a steady place to live Within the past 12 months, did the food you bought not last and you didn't have the money to get more?: Never true Within the past 12 months, did you worry whether your food would run out before you got money to buy more?: Never true Do you have trouble paying for medicines?: No Do you have trouble getting transportation to medical appointments?: No Do you have trouble paying your heating and electricity bill?: No Do you have trouble taking care of your child, family member or friend?: No Do you have trouble with day-to-day activities such as bathing, preparing meals, shopping, managing finances, etc.?: No Are you currently unemployed and looking for a job?: No Are you interested in more education?: No Please select the resources that you would like help with: None Currently or been in a relationship where the following occur: No concerns reported THRIVE Score: 0 AUDIT C Alcohol Use Questionnaire (AUDIT-C) 1. How often do you have a drink containing alcohol?: 2-4 times a month 2. How many drinks containing alcohol do you have on a typical day when you are drinking?: 1 or 2 3. How often do you have six or more drinks on one occasion?: Never Total Score: 2 LOUIS-7 AMB Questionnaire LOUIS-7 Date LOUIS - 7 assessed: 09/15/24 Feeling nervous, anxious, or on edge: 3 = Nearly every day Not being able to stop or control worryin = Several days Worrying too much about different things: 1 = Several days Trouble relaxin = Several days Being so restless that it is hard to sit still: 1 = Several days Becoming easily annoyed or irritable: 1 = Several days Feeling afraid as if something awful might happen: 1 = Several days Total LOUIS-7 score (0-4 normal; 5-9 mild; 10-14 moderate; 15-21 severe): 9 Source: Developed by Drs. Kishor Jaramillo, Yarely Thomason, Myron Varela and colleagues, with an educational josette from [employer] LOUIS-7 Assessment Billing LOUIS-7 Assessment Tool: LOUIS-7 Assessment 49280 Physical exam (Primary Care) Vital Signs: Last Vital Signs Temp 97.0 F 09/15/24 10:45 Pulse 64 09/15/24 10:45 BP 104/72 09/15/24 10:45 Pulse Ox 97 09/15/24 10:45 Oxygen Delivery Method Room Air 09/15/24 10:45 BMI result Body Mass Index 27.6 Tobacco/Smoking Status: Tobacco use Status Tobacco use date assessed 09/15/24 09/15/24 10:59 Patient Tobacco Use Status Former Tobacco user 09/15/24 10:43 Tobacco use type Cigarette 09/15/24 10:43 e-Cigarette/Vaping Use Never Used 09/15/24 10:43 PHQ-9: PHQ-9 Score PHQ-9: Total score 0 09/15/24 11:21 Depression Screening Interpretation: Negative Thrive Assessment: Date of Thrive Assessment Date Thrive assessed 09/15/24 09/15/24 10:43 Currently or been in a relationship where the following occur: No concerns reported Const General: alert; No acute distress Eyes Conjunctivae: conjunctivae normal Resp Auscultation: clear to auscultation bilaterally Cardio Rate: regular rate Rhythm: regular rhythm GI Inspection: Yes normal to inspection Extrem General: Yes normal to inspection and No edema Coding Level of Care Code Est Pt Level 4 (18469) Complex EM visit Add On G2211 Diagnoses Hepatitis C B19.20 Overweight (BMI 25.0-29.9) E66.3 Calculus of gallbladder without cholecystitis without obstruction K80.20 Biliary obstruction: without biliary obstruction Cholecystitis presence: without cholecystitis Cholelithiasis location: gallbladder Generalized anxiety disorder F41.1 Erectile dysfunction N52.9 Additional Codes LOUIS-7 Assessment Billing - LOUIS-7 Assessment Tool: LOUIS-7 Assessment 68851 ([id number]) PHQ-9 - 58105 - PHQ-9 Billing: Yes ([id number]) Assessment & Plan Assessment & Plan (1) Hepatitis C: Comment: [address] Celeste Code(s): B19.20 - Unspecified viral hepatitis C without hepatic coma Category: Medical Plan: Patient is being followed up by Gastroenterology and has proof of cure (2) Overweight (BMI 25.0-29.9): Code(s): E66.3 - Overweight Category: Medical Plan: Continue with diet and exercise (3) Cholelithiases: Comment: 12/2022 Code(s): K80.20 - Calculus of gallbladder without cholecystitis without obstruction Category: Medical Qualifiers: Biliary obstruction: without biliary obstruction Cholecystitis presence: without cholecystitis Cholelithiasis location: gallbladder Qualified Code(s): K80.20 - Calculus of gallbladder without cholecystitis without obstruction Plan: Low-fat diet and exercise (4) Generalized anxiety disorder: Comment: private counsellor Code(s): F41.1 - Generalized anxiety disorder Category: Medical Plan: Continue with counseling (5) Erectile dysfunction: Code(s): N52.9 - Male erectile dysfunction, unspecified Category: Medical Plan: testosterone testing advised and sildenafil script sent Plan History of Present Illness The patient is a 39-year-old male presenting with symptoms concerning generalized anxiety disorder related to recent panic episodes and throat pain. There is a substantial history of hepatitis C, treated successfully in 2021, with ongoing gastroenterological monitoring showing no progression of liver disease. Additionally, the patient acknowledges significant weight loss partially attributed to gallbladder disease dietary changes. He experiences ongoing digestion concerns attributed to cholelithiasis and seeks assessment of testosterone levels. The patient attributes his anxiety symptoms, including physical sensations of tightness and throat discomfort, to periods of heightened panic. Although screened previously for liver function with normal results, he is pursuing further evaluation of a previously unassessed testosterone level alongside sustained weight management and dietary modifications. Health Maintenance - Low-fat diet recommended for gallbladder disease management - Regular exercise for overall health - Periodic liver function tests - Continued counseling for anxiety management Social History - Reports adherence to a low-fat diet is inconsistent, impacting gallbladder symptoms - Has reduced calorie intake, resulting in a 19-pound weight loss - Experiences periods of anxiety which affects daily activities Review of Systems - HEENT: Reports intermittent throat pain not associated with flu - Gastrointestinal: Reports excessive gas, no constipation - Psychiatric: Reports panic and anxiety, sometimes with physical tightness Physical Exam - Throat- No redness noted, healthy color - Pulmonary- Normal respiration during deep breathing Results - Labs: Normal blood count in July - Liver function tests: Normal - Alpha-fetoprotein: Normal - Cholesterol check (November 2023): Normal - Sleep study (June 12): Negative for sleep apnea Plan Management of the patient's generalized anxiety disorder involves ongoing counseling and consideration for pharmacotherapy following patient preference. Monitoring of testosterone levels through newly requested blood work is anticipated. Maintaining a low-fat diet remains vital for gallbladder disease, with surgical options placed on hold unless symptoms exacerbate. Comprehensive symptom monitoring and addressing psychosomatic manifestations due to anxiety continue to be priorities within this therapeutic plan. Patient was informed and verbally consented to the use of an ambient scribe for clinic note documentation during this visit. Discussion Notes I engaged the patient in a detailed discussion regarding management and treatment options for generalized anxiety disorder, including continuation with counseling and possible anxiolytics prescriptions. We explored the benefits and risks of maintaining dietary changes to manage gallbladder disease symptoms. The necessity for a new testosterone level evaluation was acknowledged, with a concurrent requisition submitted. Consent for non-surgical management of gallbladder stones was discussed, with follow-up scheduled if oral medication or dietary changes prove ineffective. We revisited lifestyle recommendations favoring hydration and adequate nutrition to maintain overall well-being. Patient Instructions - Continue with counseling sessions regularly to manage anxiety. - Follow a low-fat diet strictly to help manage gallbladder symptoms. - Hydrate adequately and maintain a balanced diet. - Monitor any changes in symptoms and report new or worsening issues promptly. - Complete the blood test for testosterone levels as soon as possible. Orders: Orders Testosterone, Total Today N52.9 - Male erectile dysfunction, unspecified Medications: New sildenafil (Viagra) administer 30 minutes to 4 hours before activity 50 mg PO DAILY PRN 14 tabs 2RF sexual activity N52.9 - Male erectile dysfunction, unspecified
[2024-09-15 10:45] VITALS: BP 104/72; PULSE 64; TEMP 36.1; O2SAT 97; BMI 27.6
== END 2024-09-15 11:30 | disposition home or self-care (01) ==
LOC: HO.HMCH 10:37
PROVIDERS: PCP Internal Medicine; Visit Provider Internal Medicine
DX: B19.20 Unspecified viral hepatitis C without hepatic coma (principal); E66.3 Overweight; K80.20 Calculus of gallbladder without cholecystitis without obstruction; F41.1 Generalized anxiety disorder; N52.9 Male erectile dysfunction, unspecified

== ENCOUNTER → 2024-09-15 10:37 | Outpatient (BNVA) | payer OTHER, SELFPAY | PROVIDERS: PCP Internal Medicine; Visit Provider Internal Medicine | DX: B19.20 Unspecified viral hepatitis C without hepatic coma (principal); E66.3 Overweight; K80.20 Calculus of gallbladder without cholecystitis without obstruction; F41.1 Generalized anxiety disorder; N52.9 Male erectile dysfunction, unspecified | CPT/HCPCS: 96127; 99212 ==

== ENCOUNTER 2024-09-15 12:01 | Outpatient (REF) | payer OTHER, SELFPAY ==
[2024-09-19 21:38] LABS: Testosterone, Total 707 ng/dL (250-1100)
== END 2024-09-15 12:02 | disposition home or self-care (01) ==
LOC: HO.10HDL 12:01
PROVIDERS: Visit Provider Internal Medicine
DX: N52.9 Male erectile dysfunction, unspecified (principal)
CPT/HCPCS: 36415; 84403

== ENCOUNTER 2024-10-09 11:18 | Outpatient (REF) | payer OTHER, SELFPAY ==
--- NOTE | ~2024-10-09 | US_ITS ---
CLINICAL HISTORY: R32 - Unspecified urinary incontinence US Urinary Bladder Comparison: None Findings: The urinary bladder is unremarkable. Prevoid volume: 152 mLPostvoid volume: 5.8 mL Ureteral jets are visualized bilaterally. IMPRESSION: Normal urinary bladder This document has been electronically signed by: Tree Richards MD on 10/10/2024 08:45:57
--- OUTSIDE RECORDS SUMMARY | 2024-10-09 14:01 | XMS_ITS | Encounter Summary ---
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
--- OUTSIDE RECORDS SUMMARY | 2024-10-09 14:01 | XMS_ITS | Encounter Summary ---
Author Organization [facility] Address [address] [place] [address] Care Team Providers Care Quarrying Manager Name Role Phone Unavailable Primary Care Provider [...]
--- OUTSIDE RECORDS SUMMARY | 2024-10-09 14:01 | XMS_ITS | Patient Health Record ---
Author Organization [facility] Address [address] [place] [address] Care Team Providers Care Product Director Name Role Phone Gabrielle Somers MD Primary Care Provider Kishor Saavedra [phone] Allergies No Known Allergies Results Component Value Reference Range Notes Complete Blood Count Auto Di ff Reviewed date:08/14/2024 01:07:08 PM Interpretation: Performing Lab:[facility], [address] [place] [phone] Notes/Report: White Blood Count 6.1 4.8-10.8 X10*3/uL Red Blood Count 5.15 4.60-5.80 X10*6/uL Hemoglobin 15.7 14.0-18.0 g/dl Hematocrit 44.6 42.0-52.0 % Mean Corpuscular Volume 86.6 80.0-98.0 fL Mean Corpuscular Hemoglobin 30.5 27.0-33.0 pg Mean Corpuscular HGB Conc 35.2 31.0-36.0 g/dl Red Cell Distribution Width 12.6 11.0-16.0 % Platelet Count 236 160-400 X10*3/uL Mean Platelet Volume 10.4 9.4-12.4 fL Neutrophils Percent Auto 42.4 45-73 % Imm Gran Pct Auto 0.5 0.0-0.4 % Lymphocytes Percent Auto 44.3 20-40 % Monocytes Percent Auto 9.5 2-11 % Eosinophils Percent Auto 3.0 0-4 % Basophils Percent Auto 0.3 0-2 % NRBC Pct Auto 0.0 0.0-0.2 /100WBC Neutrophils Absolute Auto 2.6 2.0-8.3 x10*3/uL Imm Gran Abs Auto 0.03 0.00-0.03 X10*3/uL Lymphocytes Absolute Auto 2.7 1.2-4.9 X10*3/uL Monocytes Absolute Auto 0.6 0.1-1.2 X10*3/uL Eosinophils Absolute Auto 0.2 0.0-0.4 X10*3/uL Basophils Absolute Auto 0.0 0.0-0.2 X10*3/uL NRBC Abs Auto 0.000 0.0-0.012 X10*3/uL Prothrombin Time INR Reviewed date:08/14/2024 01:07:39 PM Interpretation: Performing Lab:[facility], [address] [place] [phone] Notes/Report: Prothrombin Time 12.0 10.9-12.4 SEC INTERNATIONAL NORM RATIO 1.0 0.9-1.1 INTERNATIONAL NORMALIZED RATIO (INR) REFERENCE RANGES Reference Range For patients not on anticoagulant therapy: 0.9 - 1.1 INR ranges for oral anticoagulant therapy: For prevention and treatment of venous thrombosis and pulmonary embolism: 2.0 - 3.0 For acute myocardial infarction with aspirin therapy: 2.0 - 3.0 For acute myocardial infarction without aspirin therapy: 3.0 - 4.0 For patients with mechanical prosthetic heart valves: 2.5 - 3.5 Liver Panel Reviewed date:08/14/2024 01:06:40 PM Interpretation: Performing Lab:[facility], [address] [place] [phone] Notes/Report: Bilirubin Total 0.6 0.0-1.0 mg/dL Bilirubin Direct 0.2 0.0-0.5 mg/dL Aspartate Amino Transferase 27 5-37 U/L Alanine Aminotransferase 21 0-40 U/L Total Protein 7.9 6.5-8.0 g/dL Albumin Level 4.4 3.5-5.0 g/dL Alkaline Phosphatase 41 39-117 U/L Alpha Fetoprotein Reviewed date:08/22/2024 05:23:47 PM Interpretation: Performing Lab:[facility], [address] [place] [phone] Notes/Report: Alpha Fetoprotein 1.8 REFERENCE RANGE: < 6.1 ng/mL This test was performed using the Angelica Manny chemiluminescent method. Values obtained from different assay methods cannot be used interchangeably. AFP levels, regardless of value, should not be interpreted as absolute evidence of the presence or absence of disease. THIS TEST PERFORMED AT: [facility] [address] [place] [phone] HOT HEAD MACHINE OPERATOR: NATALIA SWANN MD Liver Fibrosis Pnl Reviewed date:08/22/2024 05:24:48 PM Interpretation: Performing Lab:[facility], [address] [place] [phone] Notes/Report: Liver Fibrosis Score 0.07 Liver Fibrosis Stage F0 Liver Fibrosis Interpretation no fibrosis Fibro Test Score (f) Metavir Score f>=0 and f<=0.21 : F0 (no fibrosis) f>0.21 and f<=0.27 : F0-F1 (no fibrosis) f>0.27 and f<=0.31 : F1 (minimal fibrosis) f>0.31 and f<=0.48 : F1-F2 (minimal fibrosis) f>0.48 and f<=0.58 : F2 (moderate fibrosis) f>0.58 and f<=0.72 : F3 (advanced fibrosis) f>0.72 and f<=0.74 : F3-F4 (advanced fibrosis) f>0.74 and f<=1.00 : F4 (severe fibrosis) Nec Inflam Act Score 0.04 Nec Inflam Act Grade A0 Nec Inflam Act Interpretation no activity ActiTest Score (a) Metavir Score a>=0 and a<=0.17 : A0 (no activity) a>0.17 and a<=0.29 : A0-A1 (no activity) a>0.29 and a<=0.36 : A1 (minimal activity) a>0.36 and a<=0.52 : A1-A2 (minimal activity) a>0.52 and a<=0.60 : A2 (significant activity) a>0.60 and a<=0.62 : A2-A3 (significant activity) a>0.62 and a<=1.00 : A3 (severe activity) USC-Ujotx-8-Macroglobuli n 115 REFERENCE RANGE: 106-279 mg/dL FIB-Haptoglobin 243 (H) REFERENCE RA NGE: 43-212 mg/dL FIB-Apolipoprotein A1 101 REFERE NCE RANGE: 94-476 mg/dL FIB-Total Bilirubin 0.5 REFERENC E RANGE: 0.2-1.2 mg/dL FIB-GGT 22 REFERENCE RANGE : 3-90 U/L FIB-ALT 15 REFERENCE RANGE : 9-46 U/L Reference ID [id number] Footnote SEE NOTE The reliability of results is dependent on compliance with the preanalytical and analytical conditions recommended by [employer]. The tests have to be deferred for: acute hemolysis, acute hepatitis, acute inflammation, extra hepatic cholestasis. The advice of a specialist should be sought for interpretation in chronic hemolysis and Gilbert's syndrome. The test interpretation is not validated in liver transplant patients. Isolated extreme values of one of the components should lead to caution in interpreting the results. In case of discordance between a biopsy result and a test, it is recommended to seek the advice of a specialist. The causes of these discordances could be due to a flaw of the test or to a flaw in the biopsy: i.e. a liver biopsy has a 33% variability rate for one fibrosis stage ALT may be underestimated in vitamin B6 deficient individuals. This has no effect on the FibroTest Score but may underestimate the Actitest Score. FibroTest is interpretable for chronic hepatitis B and C, alcoholic and non alcoholic steatosis. ActiTest is interpretable for chronic hepatitis B and C. The performance characteristics have been determined by [employer] [facility]. It has not been cleared or approved by the U.S. Food and Drug Administration. Performance characteristics refer to the analytical performance of the test. statusboom, the associated logo, Diveboard and all associated [employer] valle are the registered trademarks of [employer]. All third alliance party valle - ? and ? - are the property of their respective owners. ? [id number] [employer]. All rights reserved. THIS TEST PERFORMED AT: [employer] [facility] [facility] [address] [place] [address] [phone] HOT HEAD MACHINE OPERATOR: SIVA YANEZ MD, PHD, RAJINDER Hep C Viral Load Reviewed date:08/22/2024 05:23:37 PM Interpretation: Performing Lab:[facility], [address] [place] [phone] Notes/Report: HepC Viral Load <15 NOT DETECTED NOT DETECTED IU/mL HCV Log PCR <1.18 NOT DETECTED NOT DETECTED Log IU/mL For additional information, please refer to http://education.Grubster/faq/FA Q22v1 (This link is being provided for informational/ educational purposes only.) THIS TEST WAS PERFORMED AT: [facility] [address] [place] [phone] NATALIA SWANN MD US abdomen comp w elastograp hy Reviewed date:08/19/2024 06:52:16 PM Interpretation: Performing Lab: Notes/Report: [address] [address] Ultrasound Report Signed Patient: Ximena Lozoya MR#: [id number] : 1985 Acct:[id number] Age/Sex: 39 / M ADM Date: 08/14/24 Loc: HO.US Attending Dr: Kishor Rosas MD Ordering Physician: Kishor Rosas MD Date of Service: 08/14/24 Procedure(s): US abdomen comp w elastography Accession Number(s): [id number] cc: Gabrielle Somers MD; Kishor Rosas MD EXAMINATION: US COMPLETE ABDOMEN WITH LIVER ELASTOGRAPHY CLINICAL INFORMATION: History chronic hepatitis. COMPARISON: 01/05/2023 TECHNIQUE: Real-time imaging of the abdominal viscera. Noninvasive ultrasound liver fibrosis assessment is performed using Kareen ElastPQ point quantification shear wave elastography (pSWE) with a C5-2 MHz transducer. Multiple elastography samples are obtained. FINDINGS: PANCREAS: The visualized pancreatic head and body are normal in appearance. The remainder of the pancreas is obscured from visualization by the overlying bowel gas. ABDOMINAL AORTA: No aortic aneurysm is seen. INFERIOR VENA CAVA: Visualized portions are normal. LIVER: The liver demonstrates normal size, contour and minimally increased diffuse echogenicity. No focal lesion or intrahepatic biliary duct dilatation. The right lobe measures 15.0 cm in length. The left lobe measures 9.6 cm in length. Portal flow is towards the liver (hepatopetal). Shear wave liver elastography median stiffness is 1.48 m/s (reference: normal median stiffness is 1.3 m/s or less). (Previously measured 1.89 m/s) IQR/median stiffness to assess sampling precision is 0.15 (reference: good quality data set is IQR/median stiffness of 0.15 or less). GALLBLADDER: There are intraluminal gallstones. No gallbladder wall thickening, pericholecystic fluid, or positive sonographic De La Cruz's sign. COMMON BILE DUCT: Normal in caliber measuring 0.2 cm in diameter. RIGHT KIDNEY: No hydronephrosis. No renal calculi or focal parenchymal lesions. The kidney measures 10.5 cm in maximum dimension. LEFT KIDNEY: No hydronephrosis. No renal calculi or focal parenchymal lesions. The kidney measures 10.6 cm in maximum dimension. SPLEEN: Unremarkable. The spleen measures 10.7 cm in maximum dimension. FREE FLUID: None seen. US/US abdomen comp w elastography IMPRESSION: 1. Normal hepatic size with mildly increased echogenicity present. No focal lesion. 2. Liver elastography: In the absence of other known clinical signs, measurements rule out compensated advanced chronic liver disease. If there are known clinical signs, further testing may be needed for confirmation. When compared with prior exam, there is a statistically significant decrease in liver stiffness (decrease at least 10%). 3. Cholelithiasis. No evidence of gallbladder inflammation. 4. Remainder of the exam is normal. REFERENCE: Society of Radiologists in Ultrasound Liver Stiffness Thresholds (2020): LIVER STIFFNESS THRESHOLDS: *Liver Stiffness equal or less than 1.3 m/s: High probability of being normal. *Liver Stiffness less than 1.7 m/s: In the absence of other known clinical signs, rules out compensated advanced chronic liver disease. *Liver Stiffness 1.7-2.1 m/s: Suggestive of compensated advanced chronic liver disease but need further test for confirmation. *Liver Stiffness over 2.1 m/s: Rules in compensated advanced chronic liver disease. *Liver Stiffness over 2.4 m/s: Suggestive of clinically significant portal hypertension. QUALITY OF DATA SET: *IQR/Median value equal or less than 0.15 implies a quality data set. *IQR/Median value over 0.15 implies a poor quality data set. SIGNIFICANT CHANGE FROM PRIOR EXAM: Significant change if liver stiffness measurement is 10% or greater from prior exam. OTHER CONSIDERATIONS: The stage of liver fibrosis may be overestimated in the setting of acute hepatitis, liver inflammation, elevated liver function tests, hepatic vascular congestion, obstructive cholestasis, non-fasting state, and infiltrative diseases such as amyloidosis and lymphoma. In some patients with NAFLD, the liver stiffness thresholds for compensated advanced chronic liver disease may be lower. In causes other than viral hepatitis and NAFLD, liver stiffness thresholds are not well established. Electronically signed by: Allen Serrano MD 08/14/2024 03:19 PM EST Dictated By: Allen Serrano MD Signed By: <Electronically signed by Allen Serrano MD in OV> 08/14/24 1519 DD/ 0830 TD/TT: 08/14/24829 Executive Advisor: [place] [id number] Ultrasound Report Signed Patient: Ximena Lozoya MR#: [id number] : 1985 Acct:[id number] Age/Sex: 39 / M ADM Date: 08/14/24 Loc: HO.US Attending Dr: Kishor Rosas MD Ordering Physician: Kishor Rosas MD Date of Service: 08/14/24 Procedure(s): US abdomen comp w elastography Accession Number(s): [id number] cc: Gabrielle Somers MD ; Kishor Rosas MD EXAMINATION: US COMPLETE ABDOMEN WITH LIVER ELASTOGRAPHY CLINICAL INFORMATION: History chronic hepatitis. COMPARISON: 01/05/2023 TECHNIQUE: Real-time imaging of the abdominal viscera. Noninvasive ultrasound liver fibrosis assessment is performed using Kareen ElastPQ point quantification shear wave elastography (pSWE) with a C5-2 MHz transducer. Multiple elastography samples are obtained. FINDINGS: PANCREAS: The visualized pancreatic head and body are normal in appearance. The remainder of the pancreas is obscured from visualization by the overlying bowel gas. ABDOMINAL AORTA: No aortic aneurysm is seen. INFERIOR VENA CAVA: Visualized portions are normal. LIVER: The liver demonstrates normal size, contour and minimally increased diffuse echogenicity. No focal lesion or intrahepatic biliary duct dilatation. The right lobe measu res 15.0 cm in length. The left lobe measures 9.6 cm in length. Portal flow is towar ds the liver (hepatopetal). Shear wave liver elastography median stiffness is 1.48 m/s (reference: normal median stiffn ess is 1.3 m/s or less). (Previously measured 1.89 m/s) IQR/median stiffness to assess sampling precision is 0.15 (reference: good quality data se t is IQR/median stiffness of 0.15 or less). GALLBLADDER: There a re intraluminal gallstones. No gallbladder wall thickening, pericholecystic fluid, or positive sonographic De La Cruz's sign. COMMON BILE DUCT: Normal in caliber measuring 0.2 cm in diameter. RIGHT KIDNEY: No hydronephrosis. No renal calculi or focal parenchymal lesions. The kidney measures 10.5 cm in maximum dimension. LEFT KIDNEY: No hydronephrosis. No renal calculi or focal parenchymal lesions. The kidney measures 10.6 cm in maximum dimension. SPLEEN: Unremarkable . The spleen measures 10.7 cm in maximum dimension. FREE FLUID: None seen. US/US abdomen comp w elastography IMPRESSION: 1. Normal hepatic si ze with mildly increased echogenicity present. No focal lesion. 2. Liver elastograph y: In the absence of other known clinical signs, measurements rule ou t compensated advanced chronic liver disease. If there are known clinical signs, further testing may be needed for confirmation. When compared with prior exam, there is a statistically significant decrease in liver stiffness (decrease at least 10%). 3. Cholelithiasis. N o evidence of gallbladder inflammation. 4. Remainder of the exam is normal. REFERENCE: Society of Radiologi sts in Ultrasound Liver Stiffness Thresholds (2019): LIVER STIFFNESS THRESHOLDS: *Liver Stiffness equ al or less than 1.3 m/s: High probability of being normal. *Liver Stiffness les s than 1.7 m/s: In the absence of other known clinical signs, rule s out compensated advanced chronic liver disease. *Liver Stiffness 1.7-2.1 m/s: Suggestive of compensated advanced chronic liver diseas e but need further test for confirmation. *Liver Stiffness ove r 2.1 m/s: Rules in compensated advanced chronic liver disease. *Liver Stiffness ove r 2.4 m/s: Suggestive of clinically significant portal hypertension. QUALITY OF DATA SET: *IQR/Median value eq ual or less than 0.15 implies a quality data set. *IQR/Median value ov er 0.15 implies a poor quality data set. SIGNIFICANT CHANGE F ROM PRIOR EXAM: Significant change i f liver stiffness measurement is 10% or greater from prior exam. OTHER CONSIDERATIONS: The stage of liver fibrosis may be overestimated in the setting of acute hepatitis, la er inflammation, elevated liver function tests, hepatic vascular congestion, obstructive cholestasis, non-fasting state, and infiltrat oniel diseases such as amyloidosis and lymphoma. In some patients with NAFLD, the liver stiffness thresholds for compensated advanced chronic liver disease may be lower. In causes other than viral hepatitis and NAFLD, liver stiffness thresholds are not well established. Electronically iram d by: Allen Serrano MD 08/14/2024 03:19 PM [facility] [place] Dictated By: Allen Serrano MD Signed By: <Electronically signed by Allen Serrano MD in OV> 08/14/24 1519 DD/ 9 TD/TT: 08/14/24829 Executive Advisor: Reason For Referral No Information Medications Medication SIG (Take, Route, Frequency, Duration) Notes Start Date End Date Status QUEtiapine Fumarate ER 300 MG Oral for 30 Active Methadone HCl 10 MG/5ML 5 mL as needed Orally Once a day On 7mg QD as of 12/21/2022 Active Gabapentin 100 MG Oral for 30 Active Immunizations Vaccine Route Administration Date Status Comme nts Influenza Unknown 11/12/2019 Refused Influenza Unknown 07/16/2024 Refused Social History Tobacco Use: Social History Observation Description Date Details (start date - stop date) Former Smoker NA - NA Tobacco Use/Smoking Question Answer Notes Patient is a former smoker How long has it been since you last smoked? > 10 years Alcohol Screen Question Answer Notes Did you have a drink containing alcohol in the p ast year? No Points 0 Interpretation Negative Section Notes: Nonsmoker of cigarettes > 10 years, smokes marijuana daily; no alcohol. 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/19 Problems Problem Type SNOMED Code ICD Code Onset Dates Problem Status W/U Status Risk Notes Problem [id number] Calculus of gallbladder without cholecystitis without obstruction (K80.20) Active confirmed Problem 684603441 Chronic hepatiti s C without hepatic coma (B18.2) Active confirmed Problem 198010296 Chronic hepatiti s C with hepatic coma (B18.2) Active confirmed Vital Signs Temperature 97.7 degrees Fahrenheit 07/16/2024 Blood pressure diastolic 00 mm Hg 07/16/2024 Height 66 in 07/16/2024 Blood pressure systolic 000 mm Hg 07/16/2024 Weight 185 lb 6 oz lbs 07/16/2024 BMI 29.92 kg/m2 07/16/2024 Encounters Encounter Location Date Provider Diagnosis [facility] [address] [place] [phone] 07/16/2024 Kishor Rosas Calculus of gallblad sebas without cholecystitis without obstruction K80.20 and History of chronic hepatitis Z87.19 [facility] [address] [place] [phone] 03/07/2024 Kishor Rosas [facility] [address] [place] [phone] 03/21/2024 Kishor Rosas Assessments Encounter Date Diagnosis (ICD Code) Assessment Notes Treatment Notes Treatment Clinical Notes Section Notes 07/16/2024 Calculus of gallbladder without cholecystitis without obstruction (ICD-10 - K80.20) Overall, Ximena appears well. He is not showing signs nor have any symptoms of progressive liver disease at this time. It does appear that he has had a prolonged response and cure of his hepatitis C after his treatment with Epclusa. I shall check a followup abdominal ultrasound along with laboratories including that of a hepatitis C viral load, alpha-fetoprote in level, and a liver fibrosis score. We did review the importance of continuing to remain abstinent from drugs and alcohol. We did review his history of gallstones but at this point they have remained asymptomatic. We did review potential symptoms of gallbladder disease and the need to either go to the ER for any acute problems or seek a surgical consultation as an outpatient. If things remain well I will plan to see Ximena in one year for a followup office visit. I did advise him to contact me prior to that if he has any problem so questions I can be of assistance with. Xmiena was comfortable with this plan. Thank you again for allowing me to participate in Ximena's care. I shall continue to keep you advised of his progress. 07/16/2024 History of chronic hepatitis (ICD-10 - Z87.19) Overall, Ximena appears well. He is not showing signs nor have any symptoms of progressive liver disease at this time. It does appear that he has had a prolonged response and cure of his hepatitis C after his treatment with Epclusa. I shall check a followup abdominal ultrasound along with laboratories including that of a hepatitis C viral load, alpha-fetoprote in level, and a liver fibrosis score. We did review the importance of continuing to remain abstinent from drugs and alcohol. We did review his history of gallstones but at this point they have remained asymptomatic. We did review potential symptoms of gallbladder disease and the need to either go to the ER for any acute problems or seek a surgical consultation as an outpatient. If things remain well I will plan to see Ximena in one year for a followup office visit. I did advise him to contact me prior to that if he has any problem so questions I can be of assistance with. Ximena was comfortable with this plan. Thank you again for allowing me to participate in Ximena's care. I shall continue to keep you advised of his progress. Plan Of Treatment Pending Test Test Name Order Date LIVER PROFILE 06/14/2021 LIVER PROFILE 06/15/2020 LIVER PROFILE 05/24/2019 LIVER PROFILE 11/12/2019 LIVER PROFILE 07/16/2024 CBC w DIFF 11/12/2019 CBC w DIFF 07/16/2024 CBC w DIFF 06/14/2021 CBC w DIFF 05/24/2019 PROTHROMBIN TIME (PT, INR) 06/14/2021 ALPHA-FETOPROTEIN,TUMOR MARKER 5 ALPHA-FETOPROTEIN,TUMOR MARKER 1 HEPATITIS C VIRAL LOAD 05/24/2019 HEPATITIS C VIRAL LOAD 12/21/2022 HEPATITIS C VIRAL LOAD 11/12/2019 HEPATITIS C VIRAL LOAD 07/16/2024 HEPATITIS C VIRAL LOAD 06/15/2020 HEPATITIS C VIRAL LOAD 06/14/2021 US ABD 06/14/2021 HCV LIVER FIBROSIS, FIBRO TEST 9 HCV LIVER FIBROSIS, FIBRO TEST 3 HCV LIVER FIBROSIS, FIBRO TEST 5 HCVVL REFLEX GENOTYPE REFLEX NS5A 2018 US ABDOMEN COMP WITH ELASTOGRAPHY 2022 Prothrombin Time INR 07/16/2024 Hep C Viral Load 07/18/2021 US abdomen comp w elastography 5 US abdomen comp w elastography 3 Next Appt Details Provider Name:Kishor Rosas , 07/17/2025 01:20:00 PM, [address], [address], [place], [address], Insurance Providers Payer Name Payer Address Payer Phone Subscriber Number Group Number Insured Name Patient Relationship to Insured Coverage Start Date Coverage End Date [facility] [address] [address] [place], [place] [id number] XIMENA SHRESTHA Self - patient is the insured MEDICAID [facility] [address] [place] [address] [id number] XIMENA SHRESTHA Self - patient is the insured Medical (General) History Medical History History ICD Code Denies NC,DM,CVA,Lung disease,renal dise ase Hepatitis C--diagnosed at ag [...] injections Gallstones seen on ultrasoun d in 2016--these have been asymptomatic--I did review potential symptoms [...]
--- OUTSIDE RECORDS SUMMARY | 2024-10-09 14:01 | XMS_ITS | Clinical Summary ---
Author Organization [employer] [facility] Address [address] [facility] 7[address] [place] [address] Care Team Providers Care Supervisor Porcelain Department Name Role Phone Unavailable Primary Care Provider [...] Most Recently Relevant to Health Maintenance Insurance [facility]ULT * Guarantor: Jayy Lozoya Account Type Relation to Patient Date of Phone Billing Address Personal/Family Self [address] [place] [address] * Guarantor: Jayy Lozoya Account Type Relation to Patient Date of Phone Billing Address Personal/Family Self [address] [place] [address] * Guarantor: Jayy Lozoya Account Type Relation to Patient Date of Phone Billing Address Personal/Family Self [address] [place] [address] * Guarantor: Jayy Lozoya Account Type Relation to Patient Date of Phone Billing Address Personal/Family Self [address] [place] [address]
--- OUTSIDE RECORDS SUMMARY | 2024-10-09 14:01 | XMS_ITS ---
Author Organization [facility] Address [address] [place] [address] Care Team Providers Care Regional Engagement Consultant Name Role Phone Gabrielle Somers MD Primary Care Provider Kishor Saavedra [phone] REASON FOR VISIT Pt no show Encounters Encounter Location Date Provider Diagnosis [facility] [address] [place] [address] 03/07/2024 Kishor Rosas Plan Of Treatment Next Appt Details Provider Name:Kishor Rosas , 07/17/2025 01:20:00 PM, [address], [address], [place], [address], Progress Notes * JOSTIN DONISOB: [birth year] (38 yo M)Acc No.[id number]:03/07/2024 Patient:?XIMENA DONIS :1985???Age:38 Y???Sex:Male Address:[address], [place] [address] * true * Date:? Generated for Printi star/West/eTransmitting on:?10/09/2024 02:01 PM EDT
--- OUTSIDE RECORDS SUMMARY | 2024-10-09 14:01 | XMS_ITS | Encounter Summary ---
Author Organization [facility] Address [address] [facility] 7t [place] [address] Care Team Providers Care Sludge Mill Operator Name Role Phone Unavailable Primary Care Provider [...]
== END 2024-10-09 11:19 | disposition home or self-care (01) ==
LOC: HO.US 11:18
PROVIDERS: PCP Internal Medicine; Visit Provider Internal Medicine
DX: R32 Unspecified urinary incontinence (principal)
CPT/HCPCS: 76857

== ENCOUNTER → 2024-10-09 11:20 | Outpatient (BNV) | payer OTHER, SELFPAY | PROVIDERS: PCP Internal Medicine; Visit Provider Specialist | DX: R32 Unspecified urinary incontinence (principal) | CPT/HCPCS: 76857 ==

== ENCOUNTER 2025-01-05 13:23 | Outpatient (AMB) | payer OTHER, SELFPAY ==
[2025-01-05 13:45] VITALS: BP 94/62; PULSE 74; O2SAT 98; BMI 28.6
--- NOTE | 2025-01-05 13:45 | A.OFFPC_ITS ---
Vital Signs 01/05/25 13:45 Height 5 ft 7 in Weight 182 lb 6 oz BMI 28.6 BP 94/62 Blood Pressure Location Lt brachial Position Sitting Pulse 74 Pulse Source Pulse Oximeter Pulse Oximetry (%) 98 Oxygen Delivery Method Room Air Intake Visit Reasons: E.D. Licensed Psychologist Manager Required: No Accompanied by: Self / Same As Patient Allergies No Known Allergies Allergy (Verified 01/05/25 13:48) Tobacco use date assessed: 09/15/24 Dental Screening Dental Screen Date: 09/15/24 HPI E.D. HPI Details On further questioning patient states does do intermittent fasting which is not a good thing as the patient has been feeling tired. Advised to eat regularly. [facility] Medical History Hypersomnia Obesity (BMI 30.0-34.9) H/O intravenous drug use Surgical History Cleft lip and palate Family History Paternal Grandfather Myocardial infarct Prostate cancer Maternal Grandmother Myocardial infarct Mother Lymphoma Social History Housing: Apartment Alcohol intake: current Alcohol intake frequency: does not drink Comment: once a month 2 drinks Patient Tobacco Use Status: Former Tobacco user Tobacco use type: Cigarette Years Smoked: stopped 1999. 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 1. Little interest or pleasure in doing things: several days 2. Feeling down, depressed, or hopeless: several days 3. Trouble falling or staying asleep, or sleeping too much: nearly every day 4. Feeling tired or having little energy: nearly every day 5. Poor appetite or overeating: several days 6. Feeling bad about yourself - or that you are a failure or have let yourself or your family down: nearly every day 7. Trouble concentrating on things, such as reading the newspaper or watching television: nearly every day 8. Moving or speaking so slowly that other people could have noticed. Or the opposite - being so fidgety or restless that you have been moving around a lot more than usual: several days 9. Thoughts that you would be better off or of hurting yourself in some way: several days Total score: 17 Source: Developed by Drs. Kishor Jaramillo, Yarely Thomason, Myron Varela and colleagues, with an educational josette from [employer]. Thrive Questionnaire Date Thrive assessed: 09/15/24 I am a: Patient What is your living situation today?: I have a steady place to live Within the past 12 months, did the food you bought not last and you didn't have the money to get more?: Never true Within the past 12 months, did you worry whether your food would run out before you got money to buy more?: Never true Do you have trouble paying for medicines?: No Do you have trouble getting transportation to medical appointments?: No Do you have trouble paying your heating and electricity bill?: No Do you have trouble taking care of your child, family member or friend?: No Do you have trouble with day-to-day activities such as bathing, preparing meals, shopping, managing finances, etc.?: No Are you currently unemployed and looking for a job?: No Are you interested in more education?: Yes Please select the resources that you would like help with: None Currently or been in a relationship where the following occur: No concerns reported THRIVE Score: 0 AUDIT C Alcohol Use Questionnaire (AUDIT-C) 1. How often do you have a drink containing alcohol?: 2-4 times a month 2. How many drinks containing alcohol do you have on a typical day when you are drinking?: 3 or 4 Total Score: 3 LOUIS-7 AMB Questionnaire LOUIS-7 Date LOUIS - 7 assessed: 09/15/24 Feeling nervous, anxious, or on edge: 3 = Nearly every day Not being able to stop or control worryin = Nearly every day Worrying too much about different things: 1 = Several days Trouble relaxin = Nearly every day Being so restless that it is hard to sit still: 3 = Nearly every day Becoming easily annoyed or irritable: 1 = Several days Feeling afraid as if something awful might happen: 1 = Several days Total LOUIS-7 score (0-4 normal; 5-9 mild; 10-14 moderate; 15-21 severe): 15 Source: Developed by Drs. Kishor Jaramillo, Yarely Thomason, Myron Varela and colleagues, with an educational josette from [employer]. Physical exam (Primary Care) Vital Signs: Last Vital Signs Pulse 74 01/05/25 13:45 BP 94/62 01/05/25 13:45 Pulse Ox 98 01/05/25 13:45 Oxygen Delivery Method Room Air 01/05/25 13:45 BMI result Body Mass Index 28.6 Tobacco/Smoking Status: Tobacco use Status Tobacco use date assessed 09/15/24 01/05/25 13:48 Patient Tobacco Use Status Former Tobacco user 01/05/25 13:48 Tobacco use type Cigarette 01/05/25 13:48 e-Cigarette/Vaping Use Never Used 01/05/25 13:48 PHQ-9: PHQ-9 Score PHQ-9: Total score 17 01/05/25 14:02 Thrive Assessment: Date of Thrive Assessment Date Thrive assessed 09/15/24 01/05/25 13:48 Currently or been in a relationship where the following occur: No concerns reported Const General: alert; No acute distress Eyes Conjunctivae: conjunctivae normal Resp Auscultation: clear to auscultation bilaterally Cardio Rate: regular rate Rhythm: regular rhythm GI Inspection: Yes normal to inspection Extrem General: Yes normal to inspection and No edema Coding Level of Care Code Est Pt Level 4 (72998) Diagnoses Overweight (BMI 25.0-29.9) E66.3 Erectile dysfunction N52.9 Generalized anxiety disorder F41.1 Diarrhea R19.7 Fatigue R53.83 Assessment & Plan Assessment & Plan (1) Overweight (BMI 25.0-29.9): Code(s): E66.3 - Overweight Category: Medical Plan: Diet and exercise (2) Erectile dysfunction: Code(s): N52.9 - Male erectile dysfunction, unspecified Category: Medical Plan: Patient had a testosterone tested and this is normal (3) Generalized anxiety disorder: Comment: private counsellor Code(s): F41.1 - Generalized anxiety disorder Category: Medical Plan: Stable continue with counseling and therapy (4) Diarrhea: Code(s): R19.7 - Diarrhea, unspecified Category: Medical (5) Fatigue: Code(s): R53.83 - Other fatigue Category: Medical Plan History of Present Illness The patient is a 39-year-old male presenting with fatigue and erectile dysfunction. He has a history of hepatitis C, treated in 2021, and cholelithiasis. The patient also has generalized anxiety disorder, last seen in August 2024. He experienced urinary incontinence, with a negative ultrasound result. Recent blood work in July 2024 showed normal results, including blood count, testosterone, electrolytes, and renal function. The patient is taking o axc-usg-aorseyg supplements for borderline low vitamin B12 levels. He associates erectile dysfunction with fatigue and anxiety, noting normal testosterone levels. The patient practices intermittent fasting, which may contribute to fatigue, and recognizes the importance of regular meals for energy. Health Maintenance Social History - Exercise: Patient goes to the gym and drinks more water on gym days. - Nutrition: Practices intermittent fasting, sometimes not eating for one or two days. Review of Systems - Genitourinary: Reports urinary incontinence, erectile dysfunction. - Neurological: Reports fatigue. - Psychiatric: Reports anxiety. Physical Exam Results - Labs: Normal blood count, testosterone, electrolytes, renal function (July 2024). - Imaging: Negative ultrasound for urinary incontinence. Plan The patient will continue with counseling and therapy for generalized anxiety disorder, as it remains stable. Further blood work will be conducted, preferably fasting, to assess current health status, including vitamin levels. The patient is advised to maintain regular meals to manage fatigue and ensure adequate energy levels. A urine test will be requested to further evaluate urinary incontinence. Patient was informed and verbally consented to the use of an ambient scribe for clinic note documentation during this visit. Discussion Notes I discussed with the patient the importance of maintaining regular meals to manage fatigue and ensure adequate energy levels. We also talked about the need for further blood work, preferably fasting, to assess his current health status, including vitamin B12 levels. Additionally, I recommended continuing with counseling and therapy for his generalized anxiety disorder, as it remains stable. A urine test will be requested to further evaluate his urinary incontinence. Patient Instructions - Continue with counseling and therapy for anxiety. - Maintain regular meals to manage fatigue and ensure energy levels. - Complete further blood work, preferably fasting, as discussed. - Follow up with a urine test as requested. Orders: Orders Comprehensive Met. Panel Today R53.83 - Other fatigue Free T4 (Free Thyroxine) Today R53.83 - Other fatigue Thyroid Stimulating Hormone Today R53.83 - Other fatigue Lipid Panel Today E78.00 - Pure hypercholesterolemia, unspecified, R53.83 - Other fatigue Vitamin B12 and Folate Today R53.83 - Other fatigue Complete Blood Count Auto Diff Today R53.83 - Other fatigue UA CC w/rflx Micro + Cult Today R30.0 - Dysuria, R53.83 - Other fatigue
--- OUTSIDE RECORDS SUMMARY | 2025-01-05 14:30 | XMS_ITS | Patient Health Record ---
Author Organization [facility] Address [address] [place] [address] Care Team Providers Care Brick Setter Name Role Phone Gabrielle Somers MD Primary Care Provider Kishor Saavedra [phone] Allergies No Known Allergies Results Component Value Reference Range Notes Complete Blood Count Auto Di ff Reviewed date:08/14/2024 01:07:08 PM Interpretation: Performing Lab:[facility], [address] [place] [phone] Notes/Report: White Blood Count 6.1 4.8-10.8 X10*3/uL [...] 0.0-0.2 /100WBC Neutrophils Absolute Auto 2.6 2.0-8.3 x10*3/u L Imm Gran Abs Auto 0.03 0.00-0.03 X10*3/uL Lymphocytes Absolute Auto 2.7 1.2-4.9 X10*3/u L Monocytes Absolute Auto 0.6 0.1-1.2 X10*3/uL Eosinophils Absolute Auto 0.2 0.0-0.4 X10*3/u L Basophils Absolute Auto 0.0 0.0-0.2 X10*3/uL NRBC Abs Auto 0.000 0.0-0.012 X10*3/uL Prothrombin Time INR Reviewed date:08/14/2024 01:07:39 PM Interpretation: Performing Lab:[address] [address] Notes/Report: Prothrombin Time 12.0 10.9-12.4 [employer] [...] Panel Reviewed date:08/14/2024 01:06:40 PM Interpretation: Performing Lab:[facility], [address] [place] [phone] Notes/Report: Bilirubin Total 0.6 0.0-1.0 mg/dL Bilirubin Direct 0.2 0.0-0.5 mg/dL Aspartate Amino Transferase 27 5-37 U/L Alanine Aminotransferase 21 0-40 U/L Total Protein 7.9 6.5-8.0 g/dL Albumin Level 4.4 3.5-5.0 g/dL Alkaline Phosphatase 41 39-117 U/L Alpha Fetoprotein Reviewed date:08/22/2024 05:23:47 PM Interpretation: Performing Lab:[facility], [address] [place] [phone] Notes/Report: Alpha Fetoprotein 1.8 REFERENCE RANGE: < 6.1 ng/mL This test was performed using the Angel[employer] [place] chemiluminescent method. Values obtained from different assay methods cannot be used interchangeably. AFP levels, regardless of value, should not be interpreted as absolute evidence of the presence or absence of disease. THIS TEST PERFORMED AT: [facility] [address] [place] [phone] HOSPICE SUPERINTENDENT: NATALIA SWANN MD Liver Fibrosis Pnl Reviewed date:08/22/2024 05:24:48 PM Interpretation: Performing Lab:[facility], [address] [place] [phone] Notes/Report: Liver Fibrosis Score 0.07 Liver Fibrosis [...] a>0.62 and a<=1.00 : A3 (severe activity) GSO-Hetzm-9-Macroglobulin 115 RE FERENCE RANGE: 106-279 mg/dL FIB-Haptoglobin 243 (H) REFERENCE RA NGE: 43-212 mg/dL FIB-Apolipoprotein A1 101 REFERE NCE RANGE: 94-476 mg/dL FIB-Total Bilirubin 0.5 REFERENC E RANGE: 0.2-1.2 mg/dL FIB-GGT 22 REFERENCE RANGE : 3-90 U/L FIB-ALT 15 REFERENCE RANGE : 9-46 U/L Reference ID [id number] Footnote SEE NOTE The reliability of results is dependent on compliance with the preanalytical and analytical conditions recommended by [employer]. The tests have to be deferred for: [...] The performance characteristics have been determined by [facility]. It has not been cleared or approved by the U.S. Food and Drug Administration. Performance characteristics refer to the analytical performance of the test. [employer] the associated logo, [employer] and all associated [employer] valle are the registered trademarks of [employer]. All third republican valle - ? and ? - are the property of their respective owners. ? [id number] [employer]. All rights reserved. THIS TEST PERFORMED AT: [facility] [address] [place] [address] [phone] HOSPICE SUPERINTENDENT: SIVA YANEZ MD, PHD, RAJINDER Hep C Viral Load Reviewed date:08/22/2024 05:23:37 PM Interpretation: Performing Lab:[facility], [address] [place] [phone] Notes/Report: HepC Viral Load <15 NOT DETECTED NOT DETECTED IU/mL HCV Log PCR <1.18 NOT DETECTED NOT DETECTED Log IU/mL For additional information, please refer to http://W[employer] Life.Vanu/faq/FAQ22v 1 (This link is being provided for informational/ educational purposes only.) THIS TEST WAS PERFORMED AT: [facility] [address] [place] [phone] NATALIA SWANN MD US abdomen comp w elastograp hy Reviewed date:08/19/2024 06:52:16 PM Interpretation: Performing Lab: Notes/Report: [address] [address] Ultrasound Report Signed Patient: Ximena Lozoya MR#: [id number] : 1985 Acct:[id number] Age/Sex: 39 / M ADM Date: 08/14/24 Loc: HO.US Attending Dr: Kishor Rosas MD Ordering Physician: Kishor Rosas MD Date of Service: 08/14/24 Procedure(s): US abdomen comp w elastography Accession Number(s): [id number] cc: Gabrielle Somers MD; Kishor Rosas MD [...] by: Allen Serrano MD 08/14/2024 03:19 PM [facility] Dictated By: Allen Serrano MD Signed By: <Electronically signed by Allen Serrano MD in OV> 08/14/24 1519 DD/ 9 TD/TT: 08/14/24829 Dock Operator: Reason For Referral No Information Medications Medication [...] Problem Status W/U Status Risk Notes Problem 59730469 Calculus of gallbladder without cholecystitis without obstruction (K80.20) Active confirmed Problem 677899652 Chronic hepatiti s C without hepatic coma (B18.2) Active confirmed Problem 191906400 Chronic hepatiti s C with hepatic coma (B18.2) Active confirmed Vital Signs Temperature 97.7 degrees Fahrenheit 07/16/2024 Blood pressure diastolic 00 mm Hg 07/16/2024 Height 66 in 07/16/2024 Blood pressure systolic 000 mm Hg 07/16/2024 Weight 185 lb 6 oz lbs 07/16/2024 BMI 29.92 kg/m2 07/16/2024 Encounters Encounter Location Date Provider Diagnosis [facility] [address] [place] [phone] 07/16/2024 Kishor Rosas Calculus of gallblad sebas without cholecystitis without obstruction K80.20 and History of chronic hepatitis Z87.19 [facility] [address] [place] [phone] 03/07/2024 Kishor Rosas [facility] [address] [place] [phone] 03/21/2024 Kishor Rosas Assessments Encounter Date Diagnosis [...] Test Test Name Order Date LIVER PROFILE 06/15/2020 LIVER PROFILE 05/24/2019 LIVER PROFILE 11/12/2019 LIVER PROFILE 07/16/2024 LIVER PROFILE 06/14/2021 CBC w DIFF 05/24/2019 CBC w DIFF 11/12/2019 CBC w DIFF 07/16/2024 CBC w DIFF 06/14/2021 PROTHROMBIN TIME (PT, INR) 06/14/2021 ALPHA-FETOPROTEIN,TUMOR MARKER 1 ALPHA-FETOPROTEIN,TUMOR MARKER 5 HEPATITIS C VIRAL LOAD 07/16/2024 HEPATITIS C VIRAL LOAD 06/15/2020 HEPATITIS C VIRAL LOAD 06/14/2021 HEPATITIS C VIRAL LOAD 05/24/2019 HEPATITIS C VIRAL LOAD 12/21/2022 HEPATITIS C VIRAL LOAD 11/12/2019 US ABD 06/14/2021 HCV LIVER FIBROSIS, FIBRO [...] Name:Kishor Rosas , 07/17/2025 01:20:00 PM, [address], [address], [place], [address], Insurance Providers Payer Name Payer Address Payer Phone Subscriber Number Group Number Insured Name Patient Relationship to Insured Coverage Start Date Coverage End Date OnRequest Images [facility] [address] [address] [place], [place] [id number] XIMENA SHRESTHA Self - patient is the insured [place] [address] [place] [address] [id number] XIMENA SHRESTHA Self - patient is the insured Medical (General) History Medical History History ICD Code Denies [place],DM,CVA,Lung disease,renal dise ase Hepatitis C--diagnosed at ag [...]
--- OUTSIDE RECORDS SUMMARY | 2025-01-05 14:30 | XMS_ITS | Encounter Summary ---
Author Organization [employer] Address [address] [facility] 7t [place] [address] Care Team Providers Care Armature Balancer Name Role Phone Unavailable Primary Care Provider Unavailabl e Encounter Details Date Type Department Care Team (Latest Contact Info) Description 11/26/2018 Abstract [facility] CONVERSIONS Dental, Provider, DDS Social History Tobacco [...]
== END 2025-01-05 14:12 | disposition home or self-care (01) ==
LOC: HO.HMCH 13:24
PROVIDERS: PCP Internal Medicine; Visit Provider Internal Medicine
DX: E66.3 Overweight (principal); N52.9 Male erectile dysfunction, unspecified; F41.1 Generalized anxiety disorder; R19.7 Diarrhea, unspecified; R53.83 Other fatigue

== ENCOUNTER → 2025-01-05 13:23 | Outpatient (BNVA) | payer OTHER, SELFPAY | PROVIDERS: PCP Internal Medicine; Visit Provider Internal Medicine | DX: E66.3 Overweight (principal); Z68.28 Body mass index [BMI] 28.0-28.9, adult; N52.9 Male erectile dysfunction, unspecified; F41.1 Generalized anxiety disorder; R19.7 Diarrhea, unspecified; R53.83 Other fatigue; Z13.31 Encounter for screening for depression | CPT/HCPCS: 99212 ==

== ENCOUNTER 2025-01-06 12:13 | Outpatient (REF) | payer OTHER, SELFPAY ==
[2025-01-06 12:32] LABS: MANUAL DIFF FLAG NO
[2025-01-06 13:25] LABS: Appearance Urine Clear; Glucose Urine UA Negative (Negative); PH 5.5 (5.0-9.0); Specific Gravity - Urine >= 1.030 (1.005-1.025)
--- OUTSIDE RECORDS SUMMARY | 2025-01-06 13:25 | XMS_ITS | Encounter Summary ---
Author Organization [employer] Address [address] [facility] [address]t [place] [address] Care Team Providers Care Human Capital Analyst Name Role Phone Unavailable Primary Care Provider Unavailabl e Encounter Details Date Type Department Care Team (Latest Contact Info) Description 11/26/2018 Abstract [facility] CONVERSIONS Dental, Provider, DDS Social History Tobacco [...]
--- OUTSIDE RECORDS SUMMARY | 2025-01-06 13:25 | XMS_ITS | Patient Health Record ---
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 Name Role Phone Gabrielle Somers MD Primary Care Provider Kishor Saavedra [phone] Allergies No Known Allergies Results Component Value Reference Range Notes Complete Blood Count Auto Di ff Reviewed date:08/14/2024 01:07:08 PM Interpretation: Performing Lab:[facility], [address] [place] [phone] Notes/Report: White Blood Count 6.1 4.8-10.8 X10*3/uL [...] INR Reviewed date:08/14/2024 01:07:39 PM Interpretation: Performing Lab:[address] [phone] Notes/Report: Prothrombin Time 12.0 10.9-12.4 SEC [employer]NATIONAL [...] Panel Reviewed date:08/14/2024 01:06:40 PM Interpretation: Performing Lab:[facility], [address] [place] [phone] Notes/Report: Bilirubin Total 0.6 0.0-1.0 mg/dL Bilirubin Direct 0.2 0.0-0.5 mg/dL Aspartate Amino Transferase 27 5-37 U/L Alanine Aminotransferase 21 0-40 U/L Total Protein 7.9 6.5-8.0 g/dL Albumin Level 4.4 3.5-5.0 g/dL Alkaline Phosphatase 41 39-117 U/L Alpha Fetoprotein Reviewed date:08/22/2024 05:23:47 PM Interpretation: Performing Lab:[facility], [address] [place] [phone] Notes/Report: Alpha Fetoprotein 1.8 REFERENCE RANGE: < 6.1 ng/mL This test was performed using the Angelica Gladewater chemiluminescent method. Values obtained from different assay methods cannot be used interchangeably. AFP levels, regardless of value, should not be interpreted as absolute evidence of the presence or absence of disease. THIS TEST PERFORMED AT: [facility] [address] [place] [phone] HYDRAULIC ELEVATOR CONSTRUCTOR: NATALIA SWANN MD Liver Fibrosis Pnl Reviewed date:08/22/2024 05:24:48 PM Interpretation: Performing Lab:[facility], [address] [place] [phone] Notes/Report: Liver Fibrosis Score 0.07 Liver Fibrosis [...] a>0.62 and a<=1.00 : A3 (severe activity) DLI-Sygum-6-Macroglobulin 115 RE FERENCE RANGE: 106-279 mg/dL FIB-Haptoglobin 243 (H) REFERENCE RA NGE: 43-212 mg/dL FIB-Apolipoprotein A1 101 REFERE NCE RANGE: 94-476 mg/dL FIB-Total Bilirubin 0.5 REFERENC E RANGE: 0.2-1.2 mg/dL FIB-GGT 22 REFERENCE RANGE : 3-90 U/L FIB-ALT 15 REFERENCE RANGE : 9-46 U/L Reference ID [id number] Footnote SEE NOTE The reliability of results is dependent on compliance with the preanalytical and analytical conditions recommended by [employer]. The tests have to be deferred for: [...] The performance characteristics have been determined by [facility]. It has not been cleared or approved by the U.S. Food and Drug Administration. Performance characteristics refer to the analytical performance of the test. [employer], the associated logo, [employer] and all associated [employer] val[employer] are the registered trademarks of [facility]. All third republican valle - ? and ? - are the property of their respective owners. ? [id number] [employer]. All rights reserved. THIS TEST PERFORMED AT: [facility] [facility] [address] [place] [address] [phone] HYDRAULIC ELEVATOR CONSTRUCTOR: SIVA YANEZ MD, PHD, RAJINDER Hep C Viral Load Reviewed date:08/22/2024 05:23:37 PM Interpretation: Performing Lab:[facility], [address] [place] [phone] Notes/Report: HepC Viral Load <15 NOT DETECTED NOT DETECTED IU/mL HCV Log PCR <1.18 NOT DETECTED NOT DETECTED Log IU/mL For additional information, please refer to [email or web address]/FAQ22v [email or web address] (This link is being provided for informational/ educational purposes only.) THIS TEST WAS PERFORMED AT: [facility] [address] [place] [phone] NATALIA SWANN MD US abdomen comp w elastograp hy Reviewed date:08/19/2024 06:52:16 PM Interpretation: Performing Lab: Notes/Report: [address] [address] Ultrasound Report Signed Patient: Ximena Lozoya MR#: [id number] : 1985 Acct:[id number] Age/Sex: 39 / M ADM Date: 08/14/24 Loc: HO.US Attending Dr: Kishor Rosas MD Ordering Physician: Kishor Rosas MD Date of Service: 08/14/24 Procedure(s): US abdomen comp w elastography Accession Number(s): [id number] cc: Gabrielle Somers MD; Kishor Rosas MD [...] by: Allen Serrano MD 08/14/2024 03:19 PM [facility] Dictated By: Allen Serrano MD Signed By: <Electronically signed by Allen Serrano MD in OV> 08/14/24 1519 DD/ 9 TD/TT: 08/14/24829 Alterations Manager: Reason For Referral No Information Medications Medication [...] Problem Status W/U Status Risk Notes Problem 56135327 Calculus of gallbladder without cholecystitis without obstruction (K80.20) Active confirmed Problem 026924515 Chronic hepatiti s C without hepatic coma (B18.2) Active confirmed Problem 413444283 Chronic hepatiti s C with hepatic coma (B18.2) Active confirmed Vital Signs Temperature 97.7 degrees Fahrenheit 07/16/2024 Blood pressure diastolic 00 mm Hg 07/16/2024 Height 66 in 07/16/2024 Blood pressure systolic 000 mm Hg 07/16/2024 Weight 185 lb 6 oz lbs 07/16/2024 BMI 29.92 kg/m2 07/16/2024 Encounters Encounter Location Date Provider Diagnosis [facility] [address] [place] [phone] 07/16/2024 Kishor Rosas Calculus of gallblad sebas without cholecystitis without obstruction K80.20 and History of chronic hepatitis Z87.19 [facility] [address] [place] [phone] 03/07/2024 Kishor Rosas [facility] [address] [place] [phone] 03/21/2024 Kishor Rosas Assessments Encounter Date Diagnosis [...] elastography 5 Next Appt Details Provider Name:Kishor Rossa , 07/17/2025 01:20:00 PM, [address], [address], [place], [address], Insurance Providers Payer Name Payer Address Payer Phone Subscriber Number Group Number Insured Name Patient Relationship to Insured Coverage Start Date Coverage End Date [employer] [facility] [address] [address] [place], [place] [id number] XIMENA SHRESTHA Self - patient is the insured [place] [address] [place] [address] [id number] XIMENA SHRESTHA Self - patient is the insured Medical (General) History Medical History History ICD Code Denies RI,DM,CVA,Lung disease,renal dise ase Hepatitis C--diagnosed at ag [...]
[2025-01-06 13:28] LABS: Hematocrit 47.3 % (42.0-52.0); Hemoglobin 16.3 g/dl (14.0-18.0); Imm Gran Abs Auto 0.04 X10*3/uL (0.00-0.03); Imm Gran Pct Auto 0.7 % (0.0-0.4); Lymphocytes Absolute Auto 1.7 X10*3/uL (1.2-4.9); Mean Corpuscular HGB Conc 34.5 g/dl (31.0-36.0); Mean Corpuscular Hemoglobin 30.5 pg (27.0-33.0); Mean Corpuscular Volume 88.4 fL (80.0-98.0); NRBC Abs Auto 0.000 X10*3/uL (0.0-0.012); NRBC Pct Auto 0.0 /100WBC (0.0-0.2); Platelet Count 241 X10*3/uL (160-400); Red Blood Count 5.35 X10*6/uL (4.60-5.80); White Blood Count 6.1 X10*3/uL (4.8-10.8)
[2025-01-06 14:04] LABS: Alanine Aminotransferase 23 U/L (0-40); Albumin Level 4.7 g/dL (3.5-5.0); Alkaline Phosphatase 37 U/L (39-117); Anion Gap 12 (12-20); Aspartate Amino Transferase 22 U/L (5-37); Blood Urea Nitrogen 16 mg/dL (9-16); Calcium 9.1 mg/dL (8.4-10.2); Carbon Dioxide 27 mmol/L (22-29); Chloride 107 mmol/L (96-108); Cholesterol 167 mg/dL (<200); Estimated Glomerular Filt Rate > 60; HDL Cholesterol 43 mg/dL (>40); Potassium 3.9 mmol/L (3.3-5.1); Sodium 142 mmol/L (135-145); Total Protein 7.3 g/dL (6.5-8.0); Triglycerides 146 mg/dL (<150)
[2025-01-06 14:21] LABS: Free T4 (Free Thyroxine) 1.01 ng/dL (0.71-1.85); Thyroid Stimulating Hormone 0.55 uIU/mL (0.32-4.0)
[2025-01-06 14:29] LABS: Folate 7.2 ng/mL (> or = 4.0)
[2025-01-06 14:33] LABS: Vitamin B12 269 pg/mL (200-900)
== END 2025-01-06 12:14 | disposition home or self-care (01) ==
LOC: HO.LAB 12:13
PROVIDERS: PCP Internal Medicine; Visit Provider Internal Medicine
DX: R53.83 Other fatigue (principal); E78.00 Pure hypercholesterolemia, unspecified; R30.0 Dysuria
CPT/HCPCS: 36415; 80053; 80061; 81003; 82607; 82746; 84439; 84443; 85025

== ENCOUNTER 2025-05-15 12:40 | Outpatient (AMB) | payer OTHER, SELFPAY ==
--- OUTSIDE RECORDS SUMMARY | 2024-03-07 09:00 | XMS_ITS ---
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 Name Role Phone Gabrielle Somers MD Primary Care Provider Kishor Saavedra [phone] REASON FOR VISIT Patient presents today for hepatitis c Encounters Encounter Location Date Provider Diagnosis [facility] [address] [place] [address] 03/07/2024 Kishor Rosas Plan Of Treatment Next Appt Details Provider Name:Kishor Rosas , 07/17/2025 01:20:00 PM, [address], [address], [place], [address], Progress Notes * JOSTIN SHRESTHA OB:1985 (39 yo M)Acc No.[id number]:03/07/2024 Progress Notes Patient: Chandler SANTOS XIMENA HERNANDEZ Provider: Chandler Rosas MD :1985 A ge:38 Y S ex:Male Date:03/07/2024 Address:[address], [id number] Pcp:Gabrielle Somers MD Subjective: * Chief Complaints: * P atient presents today for hepatitis c Billing Information: * Procedure Codes: * The named appointment provid er may or may not be the originator of this progress note, and it is not deemed complete until electronically signed by the appointment provider. Sign off status: Pending * Provider: Chandler Rosas MD Date: 0 03/07/2024 Generated for Luciana graves/West/eTransmitting on: 1 07/15/2024 01:03 PM EST
[2025-05-15 12:40] VITALS: BP 118/78; PULSE 74; TEMP 36.2; O2SAT 97; BMI 28.7
--- NOTE | 2025-05-15 12:40 | A.OFFPC_ITS ---
Vital Signs 05/15/25 12:40 Height 5 ft 7 in Weight 183 lb 8 oz BMI 28.7 BP 118/78 Blood Pressure Location Lt brachial Position Sitting Pulse 74 Pulse Source Pulse Oximeter Temp 97.1 F Temp Source Temporal Artery Scan Pulse Oximetry (%) 97 Oxygen Delivery Method Room Air Intake Visit Reasons: Annual Exam Allergies No Known Allergies Allergy (Verified 05/15/25 12:42) Medication List - Last Reconciled 05/15/25 by Gabrielle Somers MD sildenafil (Viagra) 50 mg PO DAILY PRN Tobacco use date assessed: 05/15/25 Dental Screening Dental Screen Date: 05/15/25 Did you have a dental visit in the last 12 months?: Yes Did you have a dental problem in the last 6 months where you did not have access to dental care?: No Was dental information given to patient?: Patient has dentist HPI Annual Exam HPI Details occ chest pain, L feet numbness- occured depression started HPI Comments History of Present Illness Details History of Present Illness The patient is a 39 year old individual presenting for a physical exam. The patient is overweight and has a past medical history of cholelithiasis, generalized anxiety disorder, and erectile dysfunction. There have been no new surgeries since the last visit. The patient reports new symptoms over the past two years, which the patient attributes to a worsening of depression and anxiety. These symptoms include intermittent chest pain, numbness and a hot sensation in the left toe and leg, palpable lymph nodes in the neck, fatigue, and loose stools. The patient reports the erectile dysfunction may be psychological, as the patient experiences normal erections during sleep. The patient also notes a sensation of incomplete bladder emptying. Recent lab work from January 06 revealed a normal blood count, electrolytes, liver function, and an LDL of 95. However, the patient's creatinine was slightly elevated at 1.1, and vitamin B12 was borderline low at 269. Thyroid function and testosterone levels were normal. The patient's family history is significant for heart attacks in both grandfathers and a grandmother, prostate cancer in the paternal grandfather, and lymphoma in the patient's mother. The patient drinks alcohol 2-3 times a month (2-3 drinks per session), smokes cannabis, and denies cigarette or NSAID use. The patient obtains sildenafil from a non-prescribed source but does not take it consistently. The patient sees a therapist for mental health. Health Maintenance - Eye exam: Patient reports a recent eye exam two to three weeks ago. - Vaccinations: Patient declined tetanus , flu, and COVID vaccines. 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 - Substance Use Counseling: Patient smok es cannabis; was advised on the increased risk of heart attacks, strokes, and bladder cancer associated with smoking and was counseled to consider edibles as a safer alternative. - Anticipatory Guidance: Advised to be c areful during flu season and avoid contact with individuals who are coughing or sneezing. Social History - Alcohol Use: Drinks alcohol 2-3 times per month, consuming 2-3 drinks per occasion. - Tobacco Use: Denies smoking cigarettes . - Substance Use: Smokes cannabis. - Illicit Drug Use: Has a history of met hadone use. - Exercise: The patient goes to the gym and feels good afterwards. Results - Labs (from January 06): - CBC: Normal blood count, no anemia, no rmal white count and platelet count. - CMP: Normal electrolytes and glucose. - Creatinine 1.1. - Liver function is normal. - Lipid Panel: LDL is 95. - Vitamins: Vitamin B12 is 269. - Folic acid is normal. - Thyroid: Normal. - Urinalysis: Normal. - Tests and Diagnostics: - Prior Ultrasound (urinary system): Res ults were normal. [facility] Medical History Hypersomnia Obesity (BMI 30.0-34.9) H/O intravenous drug use Surgical History Cleft lip and palate Family History Paternal Grandfather Myocardial infarct Prostate cancer Maternal Grandmother Myocardial infarct Mother Lymphoma Social History (Updated 05/15/25 @ 12:52 by Gabrielle Somers MD) Housing: Apartment Alcohol intake: current Alcohol intake frequency: does not drink Comment: once a month 2-3 drinks Patient Tobacco Use Status: Former Tobacco user Tobacco use type: Cigarette Years Smoked: stopped 1999. 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 1. Little interest or pleasure in doing things: several days 2. Feeling down, depressed, or hopeless: several days 3. Trouble falling or staying asleep, or sleeping too much: nearly every day 4. Feeling tired or having little energy: nearly every day 5. Poor appetite or overeating: several days 6. Feeling bad about yourself - or that you are a failure or have let yourself or your family down: nearly every day 7. Trouble concentrating on things, such as reading the newspaper or watching television: nearly every day 8. Moving or speaking so slowly that other people could have noticed. Or the opposite - being so fidgety or restless that you have been moving around a lot more than usual: several days 9. Thoughts that you would be better off or of hurting yourself in some way: several days Total score: 17 Source: Developed by Drs. Kishor Jaramillo, Yarely Thomason, Myron Varela and colleagues, with an educational josette from [employer]. Thrive Questionnaire Date Thrive assessed: 01/05/25 I am a: Patient What is your living situation today?: I have a steady place to live Within the past 12 months, did the food you bought not last and you didn't have the money to get more?: Never true Within the past 12 months, did you worry whether your food would run out before you got money to buy more?: Never true Do you have trouble paying for medicines?: No Do you have trouble getting transportation to medical appointments?: No Do you have trouble paying your heating and electricity bill?: No Do you have trouble taking care of your child, family member or friend?: No Do you have trouble with day-to-day activities such as bathing, preparing meals, shopping, managing finances, etc.?: No Are you currently unemployed and looking for a job?: No Are you interested in more education?: Yes Please select the resources that you would like help with: None Currently or been in a relationship where the following occur: No concerns reported THRIVE Score: 0 AUDIT C Alcohol Use Questionnaire (AUDIT-C) 1. How often do you have a drink containing alcohol?: 2-4 times a month 2. How many drinks containing alcohol do you have on a typical day when you are drinking?: 3 or 4 3. How often do you have six or more drinks on one occasion?: Never Total Score: 3 LOUIS-7 AMB Questionnaire LOUIS-7 Date LOUIS - 7 assessed: 09/15/24 Feeling nervous, anxious, or on edge: 3 = Nearly every day Not being able to stop or control worryin = Nearly every day Worrying too much about different things: 1 = Several days Trouble relaxin = Nearly every day Being so restless that it is hard to sit still: 3 = Nearly every day Becoming easily annoyed or irritable: 1 = Several days Feeling afraid as if something awful might happen: 1 = Several days Total LOUIS-7 score (0-4 normal; 5-9 mild; 10-14 moderate; 15-21 severe): 15 Source: Developed by Drs. Kishor Jaramillo, Yarely Thomason, Myron Varela and colleagues, with an educational josette from [employer]. Review of Systems Narrative Review of Systems - General: Reports fatigue but states it is improving. - Denies fevers. - Cardiovascular: Reports intermittent chest pain, sometimes on the right side and sometimes on the left. - Denies shortness of breath when climbing stairs. - Respiratory: Denies waking up short of breath. - Gastrointestinal: Reports loose stools with foul odor for the past two years, sometimes with diarrhea. - Denies nausea or vomiting. - Denies dysphagia. - Genitourinary: Reports erectile dysfunction, but notes normal nocturnal erections. - Reports a sensation of incomplete bladder emptying. - Denies nocturia. - Neurological: Reports numbness and a sensation of heat in the left toe. - Reports feeling close to passing out during panic attacks. - Lymphatic: Reports palpable lymph nodes in the neck. - HEENT: Reports no vision problems with glasses. - Reports hearing is good. - Denies any known drug allergies. Const Denies poor appetite and Denies weakness Eyes Denies no additional complaints ENT Reports Normal hearing present, Denies dizziness, Denies nasal congestion, Denies tinnitus and Denies sore throat Card Denies chest pain, Denies syncope, Denies rapid heart rate and Denies dyspnea Resp Denies cough and Denies dyspnea GI Denies change in stool character, Reports constipation, Denies diarrhea, Denies nausea and Denies vomiting Denies dysuria and Denies urinary frequency Neuro Reports Normal hearing present, Denies confusion, Denies dizziness, Denies syncope and Denies weakness Psych Denies confusion Physical exam (Primary Care) Vital Signs: Last Vital Signs Temp 97.1 F 05/15/25 12:40 Pulse 74 05/15/25 12:40 BP 118/78 05/15/25 12:40 Pulse Ox 97 05/15/25 12:40 Oxygen Delivery Method Room Air 05/15/25 12:40 BMI result Body Mass Index 28.7 Tobacco/Smoking Status: Tobacco use Status Tobacco use date assessed 05/15/25 05/15/25 12:43 Patient Tobacco Use Status Former Tobacco user 05/15/25 12:52 Tobacco use type Cigarette 05/15/25 12:52 e-Cigarette/Vaping Use Never Used 05/15/25 12:52 PHQ-9: PHQ-9 Score PHQ-9: Total score 17 05/15/25 12:45 Thrive Assessment: Date of Thrive Assessment Date Thrive assessed 01/05/25 05/15/25 12:43 Currently or been in a relationship where the following occur: No concerns reported Narrative Physical Exam General: Cooperative, overweight, healthy appearing, comfortable, no acute d istress, and well developed Orientation: Patient oriented x3 Limitations: No limitations Head: Normal to inspection Ears: Hearing grossly normal bilaterally Nose: Normal external nose present Face and sinus: Normal facial exam Eyes: Appearance normal, both eyes and all related structures Neck: Normal visual inspection and Yes full ROM Respiratory: Normal respiratory effort and able to speak in complete sentences. Clear to auscultation bilaterally Cardiovascular: Regular rate and rhythm. Normal S1 and S2 GI: Normal to inspection. Soft to palpation and nontender Skin: No rashes or lesions noted Neuro: Patient oriented x3 Extremities: Normal to inspection, left toe numbness noted Const General: No confusion Orientation/consciousness: No confusion HENMT Head: Yes normocephalic Ears: external ears normal and TM's normal bilaterally Face and sinus: Yes normal facial exam Mouth: moist mucous membranes Throat: Yes tonsils normal Eyes Conjunctivae: conjunctivae normal Pupils: Equal, round and reactive pupils present and Pupil accommodation reflex normal Direct Ophthalmoscopy: normal light reflex Neck Neck: No lymphadenopathy Thyroid: Thyroid normal Chest Chest palpation & inspection: normal inspection of the chest Resp Effort & Inspection: normal respiratory effort and no audible wheezes Auscultation: clear to auscultation bilaterally, no crackles, no wheezes and lung sounds not diminished Cardio Rate: regular rate Rhythm: regular rhythm Peripheral pulses: radial pulses present and dorsalis pedis present GI Inspection: Yes normal to inspection Palpation (GI): no masses Auscultation: normal bowel sounds and normoactive bowel sounds Rectal Exam - Male: Yes deferred Male General Exam: Yes normal external exam Skin General skin exam: no rashes or lesions noted Rashes: no rashes Neuro General: No confusion Cranial nerves: Yes Equal, round and reactive pupils present and Yes Normal hearing present Cognition (Neuro): normal cognition Gait exam (Neuro): Normal gait present Motor exam (neuro): 5/5 motor strength present throughout Deep tendon reflexes (DTR's): Right brachioradialis reflex intensity grade: 2+, Left brachioradialis reflex intensity grade: 2+, Right patellar reflex intensity grade: 2+ and Left patellar reflex intensity grade: 2+ Extrem General: No edema Coding Level of Care Code Est Pt Prev Care [id number]([id number]) Diagnoses Annual physical exam Z00.00 Overweight (BMI 25.0-29.9) E66.3 Generalized anxiety disorder F41.1 Assessment & Plan Assessment & Plan (1) Annual physical exam: Code(s): Z00.00 - Encounter for general adult medical examination without abnormal findings Category: Medical Plan: Patient is advised to eat healthy, keep well hydrated, keep active and have adequate sleep. (2) Overweight (BMI 25.0-29.9): Code(s): E66.3 - Overweight Category: Medical Plan: Diet and exercise (3) Generalized anxiety disorder: Comment: private counsellorCINDA Code(s): F41.1 - Generalized anxiety disorder Category: Medical Plan: Stable Plan Plan Patient was informed and verbally consented to the use of an ambient scribe for clinic note documentation during this visit. 1. Annual Physical Examination The patient is a 39-year-old overweight individual presenting for a routine check-up. Counseled on the importance of a healthy diet, staying active, and maintaining adequate hydration. Reviewed vaccination status; the patient declined all immunizations. 2. Elevated Serum Creatinine The patient's creatinine is 1.1, which is slightly elevated for the patient's age. The patient was counseled to avoid NSAIDs like ibuprofen, Aleve, and Advil, and to use Tylenol for mild pain instead. Advised to maintain good hydration and to keep blood pressure and cholesterol controlled to protect kidney function. The labs are considered normal for now, but this will be monitored. 3. Sensation Of Incomplete Bladder Emptying The patient reports a persistent sensation of incomplete bladder emptying, though a prior ultrasound was normal. A referral will be made to Urology for further evaluation. 4. Erectile Dysfunction, Likely Psychogenic The patient reports normal nocturnal erections, and testosterone levels are normal, suggesting a psychogenic cause for the patient's erectile dysfunction, likely related to anxiety. The patient acknowledged this possibility. The patient obtains sildenafil from a non-prescribed source. 5. Cannabis Use The patient smokes cannabis. The patient was counseled on the increased risks of heart attack, stroke, and bladder cancer associated with smoking and was advised to switch to edibles as a safer alternative. 6. Loose Stools To address the patient's chronic loose stools, it was recommended to increase dietary fiber by eating more green leafy vegetables or by using an [id number] fiber supplement like Metamucil to add bulk. Advised to maintain adequate fluid intake to prevent dehydration. 7. Chest Pain, Non-Cardiac The patient's intermittent chest pain is likely muscular or anxiety-related, as it is not reproducible on palpation and occurs at rest. The patient was counseled on differentiating muscular from cardiac pain and advised that a stress test is an option if symptoms change. 8. Cervical Lymphadenopathy The patient has palpable bilateral cervical lymph nodes. Since they are present on both sides, this is a reassuring finding and not concerning at this time. Reassured the patient and advised to monitor for any changes, such as one side becoming larger than the other. 9. Vitamin B12 Deficiency The patient's vitamin B12 level is borderline low at 269. It was noted that we prefer to see this level above 300. The plan is to monitor for now. Discussion Notes I explained to the patient that the erectile dysfunction is most likely mental, given that the patient has normal erections during sleep and has a normal testosterone level, and the patient was receptive to this. We reviewed the recent lab results, highlighting the slightly elevated creatinine of 1.1. I informed the patient that this is why it is important to avoid NSAID medications like Advil and Motrin and to stay well-hydrated. I have placed a referral to urology to evaluate the patient's sensation of incomplete bladder emptying. I also noted the borderline low vitamin B12 level, explaining that we prefer it to be above 300. Regarding the palpable neck lymph nodes, I reassured the patient that because they are present on both sides, it is not a concerning finding, but we should monitor for any changes. We discussed the health risks of smoking cannabis, including an increased risk of heart attacks, strokes, and bladder cancer, and I advised that edibles are a safer alternative. I also provided education on differentiating the patient's chest pain, noting it is most likely muscular or anxiety-related, and that a stress test could be considered if it changes. Patient Instructions - To protect your kidneys, avoid taking pain medications like Advil, Motrin, Aleve, and ibuprofen. - For mild pain, it is safer to take Tylenol. - Make sure you are drinking enough fluids to stay well-hydrated. - To help with loose stool, try to eat more fiber, such as green leafy vegetables, or use an [id number] fiber supplement like Metamucil. - We have made a referral to the urology department for your urinary symptoms. - They will get in touch with you to schedule an appointment. - Smoking cannabis increases your risk for heart attack, stroke, and bladder cancer. - Using edibles is a safer option. - Let us know if you notice any changes in the lumps in your neck, especially if one side becomes larger than the other. - Continue with a healthy diet and try to stay active by going to the gym. - Be aware that it is currently flu and RSV season. - Try to stay away from anyone who is coughing or sneezing to avoid getting sick. Orders: Referrals Urology Referral R32 - Unspecified urinary incontinence
--- OUTSIDE RECORDS SUMMARY | 2025-05-15 13:03 | XMS_ITS | Encounter Summary ---
Author Organization [employer] Address [address] [place] [address] Care Team Providers Care Muleser Name Role Phone Unavailable Primary Care Provider Unavailabl e Reason for Visit * Reason Onset Date Comments RCT appt 04/01/2025 Encounter Details Date Type Department Care Team (Late st Contact Info) Description 04/01/2025 Telephone [facility] [address] [place], [place] [id number] Loraine Nicole DDS [address] [place], [place] [id number] RCT appt Social History Tobacco Use Types Packs/Day Years Used Date Smoking Tobacco: Never Passive Smoke Exposure: Never Smokeless Tobacco: Never Sex and Gender Information Value Date Recorded Sex Assigned at Male 04/24/2022 10:17 AM EDT Legal Sex Male 10:17 AM EDT Gender Identity Male 04/24/2022 10:17 AM EDT Sexual Orientation Straight 04/24/2022 10 :17 AM EDT documented as of this encounter Miscellaneous Notes * Telephone Encounter - Lisa Rodrigues - 04/01/2025 3:17 PM EDT Patient active requested for RCT since 11/2024 and checking in on status of appointment. documented in this encounter Plan of Treatment Not on file documented as of this encounter Visit Diagnoses Not on filedocumented in this encounter
--- OUTSIDE RECORDS SUMMARY | 2025-05-15 13:03 | XMS_ITS | Encounter Summary ---
Author Organization [employer] Address [address] [place] [address] Care Team Providers Care Tunnel Form Placing Supervisor Name Role Phone Unavailable Primary Care Provider Unavailabl e Encounter Details Date Type Department Care Team (Latest Contact Info) Description 02/01/2022 Abstract [facility] CONVERSIONS Dental, Provider, DDS Social History [...]
--- OUTSIDE RECORDS SUMMARY | 2025-05-15 13:03 | XMS_ITS | Patient Health Record ---
Author Organization [facility] Address [address] [place] [address] Care Team Providers Care Health Consultant Name Role Phone Gabrielle Somers MD Primary Care Provider iKshor Saavedra [phone] Allergies No Known Allergies Results Component Value Reference Range Flag Notes Complete Blood Count Auto Di ff Reviewed date:08/14/2024 01:07:08 PM Interpretation: Performing Lab:[facility], [address] [place] [phone] Notes/Report: White Blood Count 6.1 4.8-10.8 X10*3/uL N Red Blood Count 5.15 4.60-5.80 X10*6/uL N Hemoglobin 15.7 14.0-18.0 g/dl N Hematocrit 44.6 42.0-52.0 % N Mean Corpuscular Volume 86.6 80.0-98.0 fL N Mean Corpuscular Hemoglobin 30.5 27.0-33.0 pg N Mean Corpuscular HGB Conc 35.2 31.0-36.0 g/dl N Red Cell Distribution Width 12.6 11.0-16.0 % N Platelet Count 236 160-400 X10*3/uL N Mean Platelet Volume 10.4 9.4-12.4 fL N Neutrophils Percent Auto 42.4 45-73 % L Imm Gran Pct Auto 0.5 0.0-0.4 % H Lymphocytes Percent Auto 44.3 20-40 % H Monocytes Percent Auto 9.5 2-11 % N Eosinophils Percent Auto 3.0 0-4 % N Basophils Percent Auto 0.3 0-2 % N NRBC Pct Auto 0.0 0.0-0.2 /100WBC N Neutrophils Absolute Auto 2.6 2.0-8.3 x10*3/uL N Imm Gran Abs Auto 0.03 0.00-0.03 X10*3/uL N Lymphocytes Absolute Auto 2.7 1.2-4.9 X10*3/uL N Monocytes Absolute Auto 0.6 0.1-1.2 X10*3/uL N Eosinophils Absolute Auto 0.2 0.0-0.4 X10*3/uL N Basophils Absolute Auto 0.0 0.0-0.2 X10*3/uL N NRBC Abs Auto 0.000 0.0-0.012 X10*3/uL N Prothrombin Time INR Reviewed date:08/14/2024 01:07:39 PM Interpretation: Performing Lab:[address] [phone] Notes/Report: Prothrombin Time 12.0 10.9-12.4 SEC N INTERNATIONAL NORM RATIO 1.0 0.9-1.1 N INTERNATIONAL NORMALIZED RATIO (INR) REFERENCE RANGES Reference [...] Panel Reviewed date:08/14/2024 01:06:40 PM Interpretation: Performing Lab:[address] [phone] Notes/Report: Bilirubin Total 0.6 0.0-1.0 mg/dL N Bilirubin Direct 0.2 0.0-0.5 mg/dL N Aspartate Amino Transferase 27 5-37 U/L N Alanine Aminotransferase 21 0-40 U/L N Total Protein 7.9 6.5-8.0 g/dL N Albumin Level 4.4 3.5-5.0 g/dL N Alkaline Phosphatase 41 39-117 U/L N Alpha Fetoprotein Reviewed date:08/22/2024 05:23:47 PM Interpretation: Performing Lab:[address] [phone] Notes/Report: Alpha Fetoprotein 1.8 REFERENCE RANGE: < 6.1 ng/mL This test was performed using the [employer] [place] chemiluminescent method. Values obtained from different assay methods cannot be used interchangeably. AFP levels, regardless of value, should not be interpreted as absolute evidence of the presence or absence of disease. THIS TEST PERFORMED AT: [facility] [address] [place] [phone] VESSEL ORDINARY SEAMAN: NATALIA SWANN MD Liver Fibrosis Pnl Reviewed date:08/22/2024 05:24:48 PM Interpretation: Performing Lab:[facility], [address] [place] [phone] Notes/Report: Liver Fibrosis Score 0.07 Liver Fibrosis [...] a>0.62 and a<=1.00 : A3 (severe activity) [id number]-3-Macroglobuli n 115 REFERENCE RANGE: 106-279 mg/dL FIB-Haptoglobin 243 (H) REFERENCE RANGE: 43-212 mg/dL FIB-Apolipoprotein A1 101 REF ERENCE RANGE: 94-476 mg/dL FIB-Total Bilirubin 0.5 REFER ENCE RANGE: 0.2-1.2 mg/dL FIB-GGT 22 REFERENCE RANG E: 3-90 U/L FIB-ALT 15 REFERENCE RANG E: 9-46 U/L Reference ID [id number] Footnote SEE NOTE The reliability of results is dependent on compliance with the preanalytical and analytical conditions recommended by [employer]. The tests have to be deferred for: [...] The performance characteristics have been determined by [employer] [facility]. It has not been cleared or approved by the U.S. Food and Drug Administration. Performance characteristics refer to the analytical performance of the test. [employer], the associated logo, [employer] and all associated [employer] valle are the registered trademarks of [employer]. All third green party valle - ? and ? - are the property of their respective owners. ? 1860-4924 [employer]. All rights reserved. THIS TEST PERFORMED AT: [facility] [address] [place] [address] [phone] [employer]DINARY SEAMAN: SIVA YANEZ MD, PHD, RAJINDER Hep C Viral Load Reviewed date:08/22/2024 05:23:37 PM Interpretation: Performing Lab:[facility], [address] [place] [phone] Notes/Report: HepC Viral Load <15 NOT DETECTED NOT DETECTED IU/mL N HCV Log PCR <1.18 NOT DETECTED NOT DETECTED Log IU/mL N For additional information, please refer to http://education.[employer]/faq/FAQ2 2v1 (This link is being provided for informational/ educational purposes only.) THIS TEST WAS PERFORMED AT: [facility] [address] [place] [phone] NATALIA SWANN MD US abdomen comp w elastograp hy Reviewed date:08/19/2024 06:52:16 PM Interpretation: Performing Lab: Notes/Report: [address] [address] Ultrasound Report Signed Patient: Ximena Lozoya MR#: [id number] : 1985 Acct:[id number] Age/Sex: 39 / M ADM Date: 08/14/24 Loc: HO.US Attending Dr: Kishor Rosas MD Ordering Physician: Kishor Rosas MD Date of Service: 08/14/24 Procedure(s): US abdomen comp w elastography Accession Number(s): [id number] cc: Gabrielle Somers MD; Kishor Rosas MD [...] by: Allen Serrano MD 08/14/2024 03:19 PM [facility] Dictated By: Allen Serrano MD Signed By: <Electronically signed by Allen Serrano MD in OV> 08/14/24 1519 DD/ 9 TD/TT: 08/14/24829 Community Relations Coordinator: Reason For Referral No Information Medications Medication SIG (Take, Route, Frequency, Duration) Notes Start Date End Date Status QUEtiapine Fumarate ER 300 MG Tablet Extended Release 24 Hour Oral; Duration: 30 Active Methadone HCl 10 MG/5ML Solution 5 mL as needed Orally Once a day On 7mg QD as of 12/21/2022 Active Gabapentin 100 MG Capsule Oral; Duration: 30 Active Immunizations Vaccine Route Administration Date Status Comme nts Influenza Unknown 11/12/2019 Refused Influenza Unknown 07/16/2024 Refused Social History Tobacco Use: Social History Observation Description Date Details (start date - stop date) Former Smoker NA - NA Social History Drugs/Alcohol: Social Info Question Answer Notes Alcohol Screen Did you have a drink containing alcohol in the past year? No Points 0 Interpretation Negative Tobacco Use: Social Info Question Answer Notes Tobacco Use/Smoking Patient is a former smoker How long has it been since you last smoked? 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 Section Notes: Nonsmoker of cigarettes > 10 [...] Problem Status W/U Status Risk Notes Problem Cholelithiasis without obstruction (79503512) Calculus of gallbladder without cholecystitis without obstruction (K80.20) Active confirmed Problem Chronic hepatitis C (920179699) Chronic hepatitis C without hepatic coma (B18.2) Active confirmed Problem Chronic hepatitis C with hepatic coma (285363302263343) Chronic hepatitis C with hepatic coma (B18.2) Active confirmed Vital Signs Temperature 97.7 degrees Fahrenheit 07/16/2024 Blood pressure diastolic 00 mm Hg 07/16/2024 Height 66 in 07/16/2024 Blood pressure systolic 000 mm Hg 07/16/2024 Weight 185 lb 6 oz lbs 07/16/2024 BMI 29.92 kg/m2 07/16/2024 Encounters Encounter Location Date Provider Diagnosis [facility] [address] [facility] [address] [place] [phone] 07/16/2024 Kishor Rosas Calculus of gallblad sebas without cholecystitis without obstruction K80.20 and History of chronic hepatitis Z87.19 Assessments Encounter Date Diagnosis (ICD Code) Assessment [...] Test Test Name Order Date LIVER PROFILE 11/12/2019 LIVER PROFILE 06/15/2020 LIVER PROFILE 06/14/2021 LIVER PROFILE 07/16/2024 LIVER PROFILE 05/24/2019 CBC w DIFF 05/24/2019 CBC w DIFF 07/16/2024 CBC w DIFF 11/12/2019 CBC w DIFF 06/14/2021 PROTHROMBIN TIME (PT, INR) 06/14/2021 ALPHA-FETOPROTEIN,TUMOR MARKER 1 ALPHA-FETOPROTEIN,TUMOR MARKER 5 HEPATITIS C VIRAL LOAD 07/16/2024 HEPATITIS C VIRAL LOAD 05/24/2019 HEPATITIS C VIRAL LOAD 12/21/2022 HEPATITIS C VIRAL LOAD 06/14/2021 HEPATITIS C VIRAL LOAD 06/15/2020 HEPATITIS C VIRAL LOAD 11/12/2019 US ABD 06/14/2021 HCV LIVER FIBROSIS, FIBRO TEST 3 HCV LIVER FIBROSIS, FIBRO TEST 9 HCV LIVER FIBROSIS, FIBRO TEST 5 HCVVL REFLEX GENOTYPE REFLEX NS5A 2018 US ABDOMEN COMP WITH ELASTOGRAPHY 2022 Prothrombin Time INR 07/16/2024 Hep C Viral Load 07/18/2021 US abdomen comp w elastography 3 US abdomen comp w elastography 5 Next Appt Details Provider Name:Kishor Rosas , 07/17/2025 01:20:00 PM, [address] [place] [address], [address], [place], [address], Insurance Providers Payer Name Payer Address Payer Phone Subscriber Number Group Number Insured Name Patient Relationship to Insured Coverage Start Date Coverage End Date [employer] [facility] [address] [address] [place], [place] [id number] [phone] [id number] XIMENA SHRESTHA Self - patient is the insured [place] [address] [place] [address] [id number] XIMENA SHRESTHA Self - patient is the insured Medical (General) History Medical History History ICD Code Denies ME,DM,CVA,Lung disease,renal dise ase Hepatitis C--diagnosed at ag [...]
--- OUTSIDE RECORDS SUMMARY | 2025-05-15 13:03 | XMS_ITS | Encounter Summary ---
Author Organization [facility] Address [address] [facility] 7t [place] [address] Care Team Providers Care Medical Center Director Name Role Phone Unavailable Primary Care Provider Unavailabl e Encounter Details Date Type Department Care Team (Latest Contact Info) Description 11/26/2018 Abstract [facility] CONVERSIONS Dental, Provider, DDS Social History [...]
--- OUTSIDE RECORDS SUMMARY | 2025-05-15 13:03 | XMS_ITS | Encounter Summary ---
Author Organization [employer] Address [address] [facility] 7t [place] [address] Care Team Providers Care Stick Roller Name Role Phone Unavailable Primary Care Provider Unavailabl e Encounter Details Date Type Department Care Team (Latest Contact Info) Description 06/01/2020 Abstract [facility] CONVERSIONS Dental, Provider, DDS Social History [...]
--- OUTSIDE RECORDS SUMMARY | 2025-05-15 13:03 | XMS_ITS | Encounter Summary ---
Author Organization [facility] Address [address] [facility] 7t [place] [address] Care Team Providers Care Dicer Operator Name Role Phone Unavailable Primary Care Provider Unavailabl e Reason for Visit * Reason Onset Date Comments endo appt 12/31/2024 Encounter Details Date Type Department Care Team (Late st Contact Info) Description 12/31/2024 Telephone [facility] [address] [place], [place] [phone] Adair Waterman DDS [address] [place], [place] [phone] endo appt Social History Tobacco Use Types Packs/Day [...] * Telephone Encounter - Lisa Rodrigues - 12/31/2024 2:02 PM EDT Patient checking in on status of endo appt. Patient informed limited specialist schedule and patient will get call from office to schedule. Patient states that he was informed he can call off and on to see if there are any openings. Please reach out to patient with update. documented in this encounter Plan of Treatment Not on file documented as of this encounter Visit Diagnoses Not on filedocumented in this encounter
--- OUTSIDE RECORDS SUMMARY | 2025-05-15 13:04 | XMS_ITS | Clinical Summary ---
Author Organization [facility] Address [address] [address] Phone Care Team Providers Care Ortho Tech Name Role Phone Pcp, Unknown Primary Care Provider Unavailabl e Allergies No known active allergies Medications No known medications Social History Tobacco Use Types Packs/Day Years Used Date Smoking Tobacco: Never Assessed Education Answer Date Recorded Are you interested in more education? Not on my e 07/26/2023 Are you concerned about learning? Not on file 07/26/2023 No 07/26/2023 No 07/26/2023 Digital Access Answer Date Recorded No 07/26/2023 No 07/26/2023 Reliable internet access at home? Not on file 07/26/2023 Device with a working camera? Not on file Intimate Partner Violence Answer Date R ecorded Are you denied basic needs s uch as food, clothing, or medical care? No 07/26/2023 In the past 12 months have y ou been in a relationship with a person who hurts, threatens, or tries to control you? No 07/26/2023 Are you denied basic needs s uch as food, clothing, or medical care? No 07/26/2023 In the past 12 months have y ou been in a relationship with a person who hurts, threatens, or tries to control you? No 07/26/2023 Sex and Gender Information Value Date Recorded Sex Assigned at Not on file Legal Sex Male 2:08 PM EST Gender Identity Not on file Sexual Orientation Not on file Last Filed Vital Signs Vital Sign Reading Time Taken Comments Blood Pressure 129/74 07/26/2023 4:00 PM EST Pulse 61 07/26/2023 2:21 PM EST Temperature 36.4 C (97.5 F) 07/26/2023 2:21 PM EST Respiratory Rate 18 07/26/2023 2:42 PM EST Oxygen Saturation 99% 07/26/2023 4:00 PM EST Inhaled Oxygen Concentration - - Weight 71.2 kg (157 lb) 07/26/2023 2:21 PM EST Height 170.2 cm (5' 7 ) 07/26/2023 2:21 PM EST Body Mass Index 24.59 07/26/2023 2:21 PM EST Plan of Treatment Health Maintenance Due Date Last Done Comments Adult Td,Tdap Booster 1985 LIPID PANEL 1985 DEPRESSION SCREENING 1997 SMOKING Hx and SMOKELESS TOB ACCO SCREENING 1998 HEPATITIS C SCREENING 2003 HIV ONE-TIME SCREENING (18-6 5 YEARS) 2003 INFLUENZA VACCINE (#1) 2025 COVID-19 VACCINE (2024-2 6 season) 2025 HEPATITIS A VACCINES Aged Out No long er eligible based on patient's age to complete this topic HIB VACCINES Aged Out No longer eligi ble based on patient's age to complete this topic MENINGOCOCCAL VACCINES (ACWY) Aged Out No longer eligible based on patient's age to complete this topic MENINGOCOCCAL VACCINES (B) Aged Out N o longer eligible based on patient's age to complete this topic PNEUMOCOCCAL VACCINES (0-49 years) Aged Out No longer eligible based on patient's age to complete this topic Medical Devices Not on file Insurance [facility] [place] [address] [place] [address] [place] [address] [place] [address] [employer] [facility] A[employer] Care Teams Ortho Tech Relationship Specialty Start Date End Date Pcp, Unknown PCP - General 07/26/23 Additional Source Comments The information contained in this document represents components of the legal health record. It is not the complete legal health record.[facility]
--- OUTSIDE RECORDS SUMMARY | 2025-05-15 13:04 | XMS_ITS | Clinical Summary ---
Author Organization [facility] Address [address] [facility] [address]t [place] [address] Care Team Providers Care Grouter Helper Name Role Phone Unavailable Primary Care Provider Unavailabl e Allergies No known active allergies Medications No known medications Active Problems No known active problems Encounters Date Type Department Care Team Description 04/01/2025 Telephone [facility] [address] [place] [address] Loraine Nicole DDS RCT appt from Last 3 Months Social History Tobacco Use Types Packs/Day Years [...] Sign Reading Time Taken Comments Blood Pressure 122/74 12/22/2024 10:33 AM EDT Pulse 68 10/29/2024 9:11 AM EDT Temperature - - Respiratory Rate - - Oxygen Saturation - - Inhaled Oxygen Concentration - - Weight - - Height - - Body Mass Index - - Plan of Treatment Health Maintenance Due Date Last Done Comments Depression Screening 1985 HIV Screening 1985 Lipid Panel 1985 SDOH Screening 1985 Disability Screening 1985 Alcohol/Substance Use Screening 1997 Family Planning (PISQ) 2000 HPV Vaccines (1 - Male 3-dose series) 2000 Hepatitis C Screening 2003 DTaP/Tdap/Td Vaccines (1 - Tdap) 2004 Hepatitis B Vaccines (1 of 3 - 19+ 3-dose series) 2004 COVID-19 Vaccine (1 - season) 2025 Influenza Vaccine (#1) 2025 Dental Oral Exam 05/02/2025 10/29/2024, , 02/01/2022, Additional history exists Dental Prophylaxis 05/02/2025 10/29/2024, 0 02/21/2023, 02/01/2022, Additional history exists Dental X-Ray: Bitewings 10/30/2025 10/30/19 25, 02/21/2023, 01/25/2023, Additional history exists Tobacco Screening 12/22/2025 12/22/2024 Dental X-Ray: Full Mouth 10/31/2027 025, 04/09/2015, 12/02/2013, Additional history exists Zoster Vaccines (1 of 2) 2035 RSV [...] patient's age to complete this topic Meningococcal B Vaccine Aged Out No l onger eligible based on patient's age to complete this topic Meningococcal Vaccine Aged Out No bret misael eligible based on patient's age to complete this topic Pneumococcal Vaccine: Pediatrics (0 to 5 Years) and At-Risk Patients (6 to 49) Years Aged Out No longer eligible based on patient's age to complete this topic RSV under 20 months Aged Out No longe r eligible based on patient's age to complete this topic Rotavirus Vaccines Aged Out No longer eligible based on patient's age to complete this topic Procedures Procedure Name Priority Date/Time Associated Diagnosis Comments PERIODIC ORAL EVALUATION - ESTABLISHED PATIENT Routine 10/29/2024 3:00 PM EDT PROPHYLAXIS - ADULT Routine 10/29/2024 9 :00 AM EDT INTRAORAL - COMPLETE SERIES OF RADIOGRAPHIC IMAGES Routine 10/29/2024 9:00 AM EDT from Last 3 Months or Most Recently Relevant to Health Maintenance Insurance [facility] MEDICAID STAND ADULT * Guarantor: Jayy Lozoya Account Type Relation to Patient Date of Phone Billing Address Personal/Family Self [address] [place] [address] * Guarantor: Jayy Lozoya Account Type Relation to Patient Date of Phone Billing Address Personal/Family Self [address] [place] [address] * Guarantor: Jayy Lozoya Account Type Relation to Patient Date of Phone Billing Address Personal/Family Self [address] [place] [address] * Guarantor: Jayy Lozoya Account Type Relation to Patient Date of Phone Billing Address Personal/Family Self [address] [place] [address]
== END 2025-05-15 13:09 | disposition home or self-care (01) ==
LOC: HO.HMCH 12:41
PROVIDERS: PCP Internal Medicine; Visit Provider Internal Medicine
DX: Z00.00 Encounter for general adult medical examination without abnormal findings (principal); E66.3 Overweight; F41.1 Generalized anxiety disorder

== ENCOUNTER → 2025-05-15 12:40 | Outpatient (BNVA) | payer OTHER, SELFPAY | PROVIDERS: PCP Internal Medicine; Visit Provider Internal Medicine | DX: Z00.00 Encounter for general adult medical examination without abnormal findings (principal); E66.3 Overweight; F41.1 Generalized anxiety disorder; F32.A Depression, unspecified; R39.14 Feeling of incomplete bladder emptying; R79.89 Other specified abnormal findings of blood chemistry; N52.9 Male erectile dysfunction, unspecified; R19.7 Diarrhea, unspecified; R07.9 Chest pain, unspecified; R59.0 Localized enlarged lymph nodes; E53.8 Deficiency of other specified B group vitamins; R32 Unspecified urinary incontinence; Z68.28 Body mass index [BMI] 28.0-28.9, adult | CPT/HCPCS: 99395 ==